=== PATIENT | male | born 1940 | race African-American/Black ===

== ENCOUNTER 2016-10-15 12:26 | Observation (INO) | payer OTHER ==
[~2016-10-15] VITALS: Ht 172.7 cm; Wt 85.0 kg
[~2016-10-15 12:26] MED LIST: AFRI0.059 EACH NARE; ALLO300T2 PO; CART240C4 PO; FURO1TAB93 PO; GABA100C4 PO; KLOR20TA6 PO; LISI20 PO; MAGN400T PO; NEXI40CA PO; ST JTAB PO; TRAM50TA PO; WARF7.5T4 PO
[2016-10-15 12:28] VITALS: BP 143/74; PULSE 60; RESP 16; TEMP 97.9; O2SAT 99
--- NOTE | 2016-10-15 13:07 | RADRPT ---
EXAM DATE/TIME: 10/15/2016 12:38 [place] COMPARISON: CHEST SINGLE AP, March 02, 2016, 11:03. INDICATIONS : Chest pain. MEDICAL HISTORY : None. SURGICAL HISTORY : Pacemaker. ENCOUNTER: Initial ACUITY: 3 days PAIN SCORE: 9/10 LOCATION: middle Chest. FINDINGS: A single view of the chest demonstrates the lungs to be symmetrically aerated without evidence of mas s, infiltrate or effusion. Stable dual lead cardiac device. Heart size is normal.. Osseous structure s are intact. CONCLUSION: No acute disease. Flavia Lewis MD on October 15, 2016 at 13:05 Board Certified Radiologist. This report was verified electronically.
--- NOTE | 2016-10-15 13:14 | PD ---
HPI Chief Complaint: Chest Pain Time Seen by Provider: 13:09 Travel History International Travel<30 days: No Contact w/Intl Traveler<30days: No Traveled to known affect area: No History of Present Illness HPI 76-year-old male that presents to the ED for evaluation of chest pain. Patient has had chest pain for the past 2-3 days. Per patient he thought he was maybe a cold that she had some cough and runny nose but the pain has not been better. Per patient is taking a couple of nitroglycerin with some relief but he feels that after the nitroglycerin his heart palpitating. Patient has had Caths and history of heart disease with a defibrillator and pacemaker by Dr. Horne. He denies any abdominal pain. No Nausea or vomiting. She says that the pain gets worse tonight and Symptoms and shortness of breath. Per patient he doesn't know if his defibrillator is firing he cannot really tell me what that feels like. Per patient he states to aspirin. He does take Coumadin. He denies any headache. No blurry vision or double vision. Shortness of breath worsens with lying. Denies any bowel movement or urinary issues. Denies any numbness, tingling, weakness. States that the pain gets to be 7 out of 10 and mostly on the left side of the chest. Pain is not reproducible. PFSH Past Medical History Hx Anticoagulant Therapy: Yes Arthritis: No Asthma: No Autoimmune Disease: No Blood Disorders: No Anxiety: No Depression: No Heart Rhythm Problems: Yes Cancer: No Cardiac Catheterization: Yes Cardiovascular Problems: Yes Chemotherapy: No Chest Pain: Yes Congestive Heart Failure: Yes COPD: Yes Cerebrovascular Accident: No Coronary Artery Disease: Yes Diabetes: No Diminished Hearing: No Endocrine: No Gastrointestinal Disorders: No GERD: Yes Glaucoma: No Genitourinary: No Headaches: No Hepatitis: No Hiatal Hernia: No Hypertension: Yes Immune Disorder: No Implanted Vascular Access Dvce: Yes Kidney Stones: No Musculoskeletal: Yes (r arm) Neurologic: Yes Psychiatric: No Reproductive: No Respiratory: Yes Integumentary: No Immunizations Current: Yes Migraines: No Myocardial Infarction: Yes Radiation Therapy: No Renal Failure: No Seizures: No Sickle Cell Disease: No Sleep Apnea: Yes Thyroid Disease: No Ulcer: No Tetanus Vaccination: Unknown Influenza Vaccination: Yes ?: Not Past Surgical History Abdominal Surgery: No AICD: Yes ([employer]) Appendectomy: No Arteriovenous Shunt: No Body Medical Devices: PACER/DEFIBRILATOR Cardiac Surgery: Yes (pacemaker/defrib) Cholecystectomy: No Coronary Artery Bypass Graft: No Ear Surgery: No Endocrine Surgery: No Eye Surgery: No Genitourinary Surgery: No Gynecologic Surgery: No Insulin Pump: No Joint Replacement: No Oral Surgery: No Pacemaker: Yes Thoracic Surgery: No Other Surgery: Yes (back,fribrillator, broken arm right) Family History Family Myocardial Infarction: Yes Social History Alcohol Use: No Tobacco Use: No Substance Use: No Allergies-Medications (Allergen,Severity, Reaction): Coded Allergies: Red Pepper (Verified Allergy, Intermediate, Itching, 05/26/15) Tomato (Verified Allergy, Intermediate, Itching, 05/26/15) Aspirin (Verified Adverse Reaction, Severe, UPSET STOMACH, 05/26/15) *MDRO Multi-Drug Resistant Organism (Unverified Adverse Reaction, Unknown , 05/26/15) Hx MRSA chest wound 02/2010. Reported Meds & Prescriptions Reported Meds & Active Scripts Active Warfarin Sodium 7.5 mg (Warfarin Sodium) 7.5 Mg Tab 7.5 Mg PO DAILY@1600 30 Days hold if inr greater than 3.0 Reported Nexium (Esomeprazole Magnesium) Esomeprazole Magnesium 40 mg Cap 40 Mg PO DAILY Afrin 12 Hour (Oxymetazoline Hcl) 0.05 % Spr 1 [place] EACH NARE DIRECTED PRN K-Dur (Potassium Chloride) 20 Meq Tabcr 20 Meq PO BID Aspirin Ec Low Dose (Aspirin) 81 Mg Tab 81 Mg PO DAILY Gabapentin 100 Mg Cap 100 Mg PO HS Tramadol Hcl (Tramadol HCl) 50 Mg Tab 50 Mg PO Q6HR PRN Cartia XT 240 mg (DILTIAZEM XT 240 mg (Cartia)) 240 Mg/24 Hr Cap 240 Mg PO DAILY Prinivil 20 mg (Lisinopril) 20 Mg Tab 20 Mg PO DAILY Mag-Ox 400 (Magnesium Oxide) 400 Mg Tab 400 Mg PO BID Allopurinol 300 Mg Tab 300 Mg PO DAILY Lasix (Furosemide) 40 Mg Tab 40 Mg PO DAILY Review of Systems Except as stated in HPI: all other systems reviewed are Neg Physical Exam Narrative GENERAL: SKIN: Warm and dry. HEAD: Atraumatic. Normocephalic. EYES: Pupils equal and round 4 mm reactive to light and accommodation. No scleral icterus. No injection or drainage. ENT: No nasal bleeding or discharge. Mucous membranes pink and moist. Tongue is midline. No Uvula deviation. NECK: Trachea midline. No JVD. CARDIOVASCULAR: Regular rate and rhythm. RESPIRATORY: No accessory muscle use. Clear to auscultation. Breath sounds equal bilaterally. GASTROINTESTINAL: Abdomen soft, non-tender, nondistended. Hepatic and splenic margins not palpable. MUSCULOSKELETAL: Extremities without clubbing, cyanosis, or edema. No obvious deformities. Full range of motion of the upper and lower extremities bilaterally. 2+ pulses bilaterally. NEUROLOGICAL: Awake and alert. No obvious cranial nerve deficits. Motor grossly within normal limits. Five out of 5 muscle strength in the arms and legs. Normal speech. PSYCHIATRIC: Appropriate mood and affect; insight and judgment normal. Data Data Last Documented VS Vital Signs Date Time Temp Pulse Resp B/P Pulse Ox O2 Delivery O2 Flow Rate FiO2 10/15/16 12:58 60 20 100 Room Air 10/15/16 12:28 97.9 143/74 Orders Electrocardiogram (10/15/16 12:33) Complete Blood Count With Diff (10/15/16 12:33) Basic Metabolic Panel (Bmp) (10/15/16 12:33) Ckmb (Isoenzyme) Profile (10/15/16 12:33) Troponin I (10/15/16 12:33) Chest, Single Ap (10/15/16 12:33) Prothrombin Time / Inr (Pt) (10/15/16 13:01) Act Partial Throm Time (Ptt) (10/15/16 13:01) Electrocardiogram (10/15/16 15:43) Ckmb (Isoenzyme) Profile (10/15/16 15:43) Troponin I (10/15/16 15:43) Famotidine Inj (Pepcid Inj) (10/15/16 15:45) Labs Laboratory Tests Test 10/15/16 10/15/16 12:40 13:32 White Blood Count 8.4 TH/MM3 Red Blood Count 4.89 MIL/MM3 Hemoglobin 13.7 GM/DL Hematocrit 41.8 % Mean Corpuscular Volume 85.5 FL Mean Corpuscular Hemoglobin 28.0 PG Mean Corpuscular Hemoglobin 32.8 % Concent Red Cell Distribution Width 15.3 % Platelet Count 236 TH/MM3 Mean Platelet Volume 8.7 FL Neutrophils (%) (Auto) 59.0 % Lymphocytes (%) (Auto) 29.8 % Monocytes (%) (Auto) 8.2 % Eosinophils (%) (Auto) 2.6 % Basophils (%) (Auto) 0.4 % Neutrophils # (Auto) 4.9 TH/MM3 Lymphocytes # (Auto) 2.5 TH/MM3 Monocytes # (Auto) 0.7 TH/MM3 Eosinophils # (Auto) 0.2 TH/MM3 Basophils # (Auto) 0.0 TH/MM3 CBC Comment DIFF FINAL Differential Comment Sodium Level 136 MEQ/L Potassium Level 4.3 MEQ/L Chloride Level 105 MEQ/L Carbon Dioxide Level 21.6 MEQ/L Anion Gap 9 MEQ/L Blood Urea Nitrogen 29 MG/DL Creatinine 1.70 MG/DL Estimat Glomerular Filtration 48 ML/MIN Rate Random Glucose 92 MG/DL Calcium Level 8.7 MG/DL Total Creatine Kinase 95 U/L Troponin I LESS THAN 0.02 NG/ML Prothrombin Time 15.8 SEC Prothromb Time International 1.4 RATIO Ratio Activated Partial 28.7 SEC Thromboplast Time MDM Medical Decision Making Medical Screen Exam Complete: Yes Emergency Medical Condition: Yes Medical Record Reviewed: Yes Interpretation(s) CBC & BMP Diagram 10/15/16 12:40 troponin and CKMB negative Last Impressions Chest X-Ray 10/15/16 1233 Signed Impressions: Service Date/Time: Saturday, October 15, 2016 12:38 - CONCLUSION: No acute disease. Flavia Lewis MD PT and PTT WNL Differential Diagnosis Chest pain versus a typical chest pain versus COPD versus CHF versus ACS Narrative Course 76-year-old male that presents to the ED for evaluation of chest pain. Patient was properly examined and was found to have signs and symptoms concerning for cardiac chest pain. My recommendation at this time is for labs and imaging. Patient is agreeable with this. [employer] was contacted for interrogation of the pacemaker and defibrillator. Labs and imaging showed no sign of acute disease. At 3 hours after her initial troponin no one has come yet to do the interrogating of the the past. I ordered a second troponin and CK-MB as well as the EKG as patient will likely be admitted to chest pain center as long as the pacemaker and defibrillator are within normal limits. This was discussed in my attending who agrees with plan. Patient does have risk factors including high blood pressure, high cholesterol and previous heart disease. Pace maker had no sign of acute disease or changes. Discussed with patient need to admit for cardiac work up. Agrees to it. patient admitted to chest pain center. Diagnosis Primary Impression: Chest pain Qualified Code: R07.89 - Other chest pain Abner Yee Oct 15, 2016 13:14
[2016-10-15 13:27] LABS: AUTOMATED NEUTROPHIL # 4.9 TH/MM3 (1.8-7.7); BASOPHIL % 0.4 % (0.0-2.0); EOSINOPHIL # 0.2 TH/MM3 (0-0.4); EOSINOPHIL % 2.6 % (0.0-4.0); HEMATOCRIT 41.8 % (39.0-51.0); HEMO FLAGS DIFF FINAL; LYMPH % 29.8 % (9.0-44.0); LYMPHOCYTE # 2.5 TH/MM3 (1.0-4.8); MEAN CELL VOLUME 85.5 FL (80.0-100.0); MEAN CORPUSCULAR HGB CONC 32.8 % (32.0-36.0); MONO % 8.2 % (0.0-8.0); PLATELET COUNT 236 TH/MM3 (150-450); RED BLOOD COUNT 4.89 MIL/MM3 (4.50-5.90); RED CELL DISTRIBUTION WIDTH 15.3 % (11.6-17.2); WHITE BLOOD COUNT 8.4 TH/MM3 (4.0-11.0)
[2016-10-15 13:54] LABS: ANION GAP 9 MEQ/L (5-15); BICARBONATE 21.6 MEQ/L (21.0-32.0); BLOOD UREA NITROGEN 29 MG/DL (7-18); CHLORIDE 105 MEQ/L (98-107); CREATINE KINASE 95 U/L (39-308); GLOMERULAR FILTRATION RATE 48 ML/MIN (>89); SODIUM (NA) 136 MEQ/L (136-145)
[2016-10-15 13:55] LABS: POTASSIUM 4.3 MEQ/L (3.5-5.1)
[2016-10-15 14:26] LABS: APTT (PATIENT) 28.7 SEC (24.3-30.1); PROTHROMBIN TIME - PATIENT 15.8 SEC (9.8-11.6)
[2016-10-15 14:27] LABS: INTERNATIONAL NORMALIZED RATIO 1.4 RATIO
[2016-10-15] MEDS ORDERED: FAMOTIDINE 20 MG/2 ML VIAL IV PUSH ONE (15:45)
[2016-10-15] MEDS ORDERED: SODIUM CHLORIDE 0.9% FLUSH 5 ML FLUSH IVF PRN (16:45)
[2016-10-15] MEDS ORDERED: ACETAMINOPHEN 500 MG CPLT PO PRN (16:45)
[2016-10-15 17:32] LABS: CREATINE KINASE 139 U/L (39-308)
[2016-10-15] MEDS ORDERED: NEXI40CA PO (17:43)
[2016-10-15] MEDS ORDERED: GABA100C4 PO (17:43)
[2016-10-15] MEDS ORDERED: WARF-23 PO ×2 (17:43)
[2016-10-15] MEDS ORDERED: TRAM50TA PO (17:43)
[2016-10-15] MEDS ORDERED: ALLO300T2 PO (17:43)
[2016-10-15] MEDS ORDERED: SIME1CAP17 PO (17:43)
[2016-10-15] MEDS ORDERED: TIZA4TAB PO (17:43)
[2016-10-15] MEDS ORDERED: STOO100C PO (17:43)
[2016-10-15] MEDS ORDERED: MAGN400T2 PO (17:43)
[2016-10-15] MEDS ORDERED: LISI-515 PO (17:43)
[2016-10-15] MEDS ORDERED: POTA-163 PO (17:43)
[2016-10-15] MEDS ORDERED: ASPI1TAB91 PO (17:43)
[2016-10-15] MEDS ORDERED: FURO1TAB60 PO (17:43)
[2016-10-15] MEDS ORDERED: CARV3.125 PO (17:43)
[2016-10-15] MEDS ORDERED: DILT-48 PO (17:43)
[2016-10-15 17:45] LABS: CKMB 1.3 NG/ML (0.5-3.6)
[2016-10-15 20:00] VITALS: BP 137/81; PULSE 60; RESP 20; O2SAT 97
[2016-10-15 20:55] VITALS: BP 160/81; PULSE 61; RESP 20; TEMP 97.6; O2SAT 99
[2016-10-15 20:57] LABS: CREATINE KINASE 118 U/L (39-308)
[2016-10-15] MEDS ORDERED: SODIUM CHLORIDE 0.9% FLUSH 5 ML FLUSH IVF SCH (21:00)
[2016-10-15 21:10] LABS: CKMB 1.2 NG/ML (0.5-3.6)
[2016-10-16 00:02] VITALS: BP 114/61; PULSE 60; RESP 20; TEMP 97.4; O2SAT 100
[2016-10-16 00:54] VITALS: PULSE 65
[2016-10-16 01:52] VITALS: O2SAT 96
[2016-10-16 04:03] VITALS: BP 126/77; PULSE 60; RESP 18; TEMP 98.3; O2SAT 99
[2016-10-16 05:21] VITALS: BP 148/73; PULSE 67; RESP 18; TEMP 97.9; O2SAT 97
--- NOTE | 2016-10-16 07:24 | HHI.DCPOC ---
Discharge Care Plan Diagnosis: (1) GERD (gastroesophageal reflux disease) (2) Chest pain, atypical Goals to Promote Your Health * To prevent worsening of your condition and complications * To maintain your health at the optimal level Directions to Meet Your Goals Take your medications as prescribed Follow your dietary instruction Follow activity as directed Keep your appointments as scheduled Take your immunizations and boosters as scheduled If your symptoms worsen call your PCP, if no PCP go to Urgent Care Center or Emergency Room Smoking is Dangerous to Your Health. Avoid second hand smoke Call the 24-hour hour crisis hotline for domestic abuse at Bruce Campbell Oct 16, 2016 07:24
[2016-10-16] MEDS ORDERED: FAMOTIDINE 20 MG TAB PO SCH (09:00)
--- NOTE | 2016-10-16 10:38 | MH ---
cc: VETO GARAY MD DATE OF ADMISSION: 10/15/2016 1942 CHIEF COMPLAINT Chest pain. HISTORY OF PRESENT ILLNESS This is a 76-year-old male who presents to the ED with history of nonischemic cardiomyopathy, follows with Dr. Horne. He states that after eating apple last evening he felt a lot of gas in his abdomen. The gas then started to bubble up into his chest. He found he was able to pass a lot of gas and was feeling better. Denies any other type of discomfort. Denies shortness breath. Denies diaphoresis. Denies sensation of heart beating rapidly or irregularly. He had no vomiting. He states he does have some problems with moving his bowel movements at times, he stated he had normal bowel movement yesterday. PAST MEDICAL HISTORY 1. Nonischemic cardiomyopathy. 2. Gastroesophageal reflux disease. 3. Hypertension. 4. He has a pacer/defibrillator. Denies diabetes. He is unaware of his lipid status but I do not see any statins on his medication list. FAMILY HISTORY Positive for CAD. SOCIAL HISTORY The patient does not smoke, drink alcohol or use illicit drugs. PAST SURGICAL HISTORY 1. He has a defibrillator/pacemaker. 2. He has had heart catheterizations by interventions. ALLERGIES RED PEPPER, TOMATO, ASPIRIN AND HISTORY OF MRSA. MEDICATIONS Medications include: 1. Lisinopril. 2. Magnesium. 3. Warfarin. 4. Gabapentin. 5. Simethicone. 6. Allopurinol. 7. Carvedilol. 8. Diltiazem. 9. Stool softener. 10. Tizanidine. 11. Lasix. 12. Aspirin, although he stated he is allergic it but he states he takes it regularly. 13. Tramadol. 14. Nexium. 15. Potassium. REVIEW OF SYSTEMS GENERAL: Denies fevers or chills. Denies recent illnesses. HEENT: Denies headache, earache, sore throat, difficulty swallowing. CARDIOVASCULAR: Describes the discomfort as mentioned above. Denies diaphoresis. Denies sensation of heart beating rapidly or irregularly. No syncope. RESPIRATORY: Denies shortness of breath or inspirational chest discomfort. Denies coughing, wheezing or hemoptysis. GI: Denies nausea, vomiting, diarrhea, abdominal pain, blood in stool. He does get some gassy bubble sensation in his abdomen that radiated up into his chest. MUSCULOSKELETAL: Denies joint pain or edema. Denies calf pain or edema. NEUROVASCULAR: Denies headache or dizziness. ENDOCRINE: Denies polyuria or polydipsia. HEMATOLOGIC: Denies easy bruising. SKIN: Denies rash or itching. PHYSICAL EXAMINATION VITAL SIGNS: In the emergency department initially include blood pressure 143/74, heart rate 60, respirations 16, pulse oximetry 99% on room air and he was afebrile. Most recent vital signs include blood pressure 140/73, heart rate 67, respirations 18, pulse oximetry 9_% on room air and he was afebrile. GENERAL: The patient is seen in the examination room in no apparent distress. He is pleasant. He speaks in clear and complete sentences. HEENT: Head is atraumatic, normocephalic. NECK: Neck is supple without lymphadenopathy. Trachea is midline. No JVD or carotid bruits. CARDIOVASCULAR: Regular rate and rhythm without murmur, gallop or rub. RESPIRATORY: Lungs are clear to auscultation bilaterally. No wheezing, rales or rhonchi. No use of accessory muscles. GI: Abdomen is nontender, nondistended, bowel sounds are normal. No guarding or rebound. No obvious pulsatile mass or bruit. No CVA tenderness. Strong femoral pulses bilaterally. MUSCULOSKELETAL: The patient is moving upper and lower extremities freely. No joint tenderness or edema. No calf tenderness or edema, no Homans' sign. Strong pulses in upper and lower extremities. NEUROVASCULAR: The patient is alert and oriented. Cranial II-XII grossly intact. No focal deficits and speech is clear. SKIN: No rashes and turgor is normal. LABORATORY DATA CBC is unremarkable. Coagulation studies have INR 1.4 which was subtherapeutic. Basic metabolic panel has a creatinine elevated at 1.70, BUN elevated at 29, GFR is 48. Serial cardiac enzymes are normal x3. IMAGING STUDIES Single view chest x-ray read by radiology as no acute disease, pacer/defibrillator in place. EKGs are paced. ASSESSMENT AND PLAN 1. Atypical chest pain: The patient's discomfort seems to be more GI related. The patient really has not been taking the Simethicone as instructed. He has been advised to use that with his meals. He states ___ he gets a little gassy. Also the patient's INR is subtherapeutic at 1.4 but the patient does not think he took it the last couple days. The patient has been advised to take his medication as instructed and follow up with his physician to regulate his Coumadin. 2. 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 Horne. 3. Gastroesophageal reflux disease: Continue current medication. 4. Hypertension: Continue current medication. 5. Chronic renal insufficiency: The patient to continue follow-up with his physician. The patient is stable at this time. He is agreeable to this plan. Dictated by: Bruce Campbell PA-C MD ISHAAN Tineo/TLL /9:33 AM /10:38 AM
--- NOTE | 2016-10-16 14:47 | EKG ---
Date Performed: 10/15/2016 Time Performed: 19:50:54 PTAGE: 76 years EKG: ELECTRONIC ATRIAL PACEMAKER MARKED LEFT AXIS DEVIATION POSSIBLE OLD ANTERIOR MYOCARDIAL INF ARCTION PREVIOUS TRACING : 10/15/2016 16.25 VENTRICULAR PACER NO LONGER PRESENT DOCTOR: Donny Velazquez Interpretating Date/Time 10/16/2016 14:45:14
--- NOTE | 2016-10-16 14:48 | EKG ---
Date Performed: 10/15/2016 Time Performed: 12:42:53 PTAGE: 76 years EKG: ELECTRONIC ATRIAL PACEMAKER LEFT ANTERIOR FASCICULAR BLOCK POSSIBLE LATERAL MYOCARDIAL INFA RCTION ABNORMAL ECG PREVIOUS TRACING : 03/02/2016 17.01 Since previous tracing, no significant change noted DOCTOR: Donny Velazquez Interpretating Date/Time 10/16/2016 14:47:54
--- NOTE | 2016-10-16 14:48 | EKG ---
Date Performed: 10/15/2016 Time Performed: 16:25:22 PTAGE: 76 years EKG: ELECTRONIC VENTRICULAR PACEMAKER ABNORMAL RHYTHM ECG PREVIOUS TRACING : 10/15/2016 12.42 DOCTOR: Donny Velazquez Interpretating Date/Time 10/16/2016 14:46:05
== END 2016-10-16 09:03 | disposition home or self-care (01) ==
LOC: NEPC 12:26 → NEDA 16:42 → NEPFCDU 20:54
PROVIDERS: ADMIT Internal Medicine Cardiovascular Disease; ATTEND Internal Medicine Cardiovascular Disease
DX: R07.89 Other chest pain (principal); I25.10 Atherosclerotic heart disease of native coronary artery without angina pectoris; I13.0 Hypertensive heart and chronic kidney disease with heart failure and stage 1 through stage 4 chronic kidney disease, or unspecified chronic kidney disease; N18.9 Chronic kidney disease, unspecified; J44.9 Chronic obstructive pulmonary disease, unspecified; I25.2 Old myocardial infarction; K21.9 Gastro-esophageal reflux disease without esophagitis; E78.00 Pure hypercholesterolemia, unspecified; G47.30 Sleep apnea, unspecified; Z79.01 Long term (current) use of anticoagulants; Z95.0 Presence of cardiac pacemaker
CPT/HCPCS: 71010; 80048; 82550; 82552; 84484; 85025; 85610; 85730; 93005; 96374; 99285; G0378

== ENCOUNTER 2017-11-19 03:38 | Observation (INO) | payer OTHER ==
[2017-11-19] VITALS (10 sets, daily range): BP systolic 117–187; BP diastolic 63–91; PULSE 60–77; RESP 16–18; TEMP 97.3–98.3; O2SAT 96–100
[~2017-11-19] VITALS: Ht 170.2 cm; Wt 109.0 kg
[~2017-11-19 03:38] MED LIST changes: -AFRI0.059 EACH NARE; +ASPI81TA16 PO; -CART240C4 PO; +CARV3.125 PO; +DILT-48 PO; +DOCU1CAP66 PO; +FURO1TAB60 PO; -FURO1TAB93 PO; -KLOR20TA6 PO; +LISI-515 PO; -LISI20 PO; -MAGN400T PO; +MAGN400T2 PO; +POTA-163 PO; +SIME1CAP17 PO; -ST JTAB PO; +TIZA4TAB PO; +WARF-23 PO; -WARF7.5T4 PO
[2017-11-19] MEDS ORDERED: SODIUM CHLORIDE 0.9% FLUSH 10 ML FLUSH IV FLUSH PRN ×2 (05:00→06:45)
[2017-11-19] MEDS ORDERED: ONDANSETRON HCL 4 MG/2 ML VIAL IVP ONE (05:00)
[2017-11-19] MEDS ORDERED: PANTOPRAZOLE SODIUM 40 MG VIAL IVP ONE (05:00)
[2017-11-19 05:18] LABS: AUTOMATED NEUTROPHIL # 4.3 TH/MM3 (1.8-7.7); BASOPHIL % 0.3 % (0.0-2.0); EOSINOPHIL # 0.2 TH/MM3 (0-0.4); HEMATOCRIT 41.9 % (39.0-51.0); HEMOGLOBIN 13.7 GM/DL (13.0-17.0); LYMPH % 29.3 % (9.0-44.0); LYMPHOCYTE # 2.2 TH/MM3 (1.0-4.8); MEAN CELL VOLUME 84.4 FL (80.0-100.0); MEAN CORPUSCULAR HEMOGLOBIN 27.6 PG (27.0-34.0); MEAN CORPUSCULAR HGB CONC 32.7 % (32.0-36.0); MEAN PLATELET VOLUME 8.4 FL (7.0-11.0); MONO % 11.1 % (0.0-8.0); MONOCYTE # 0.8 TH/MM3 (0-0.9); NEUT % 56.3 % (16.0-70.0); PLATELET COUNT 219 TH/MM3 (150-450); RED BLOOD COUNT 4.96 MIL/MM3 (4.50-5.90); WHITE BLOOD COUNT 7.6 TH/MM3 (4.0-11.0)
[2017-11-19 05:22] LABS: INTERNATIONAL NORMALIZED RATIO 3.4 RATIO; PROTHROMBIN TIME - PATIENT 33.8 SEC (9.8-11.6)
--- NOTE | 2017-11-19 05:28 | PD ---
HPI Chief Complaint: GI Complaint Time Seen by Provider: 04:12 Travel History International Travel<30 days: No Contact w/Intl Traveler<30days: No Traveled to known affect area: No History of Present Illness HPI Patient is a history of recent only noticing bright red blood per rectum over the past few hours. Initial onset was in the afternoon today. Patient denies any history of lightheadedness dizziness or chest pain. Patient denies any alleviating or aggravating factors. PATIENT IS ON COUMADIN AND PER PATIENT HE IS COMPLIANT WITH IT. allergies aspirin Past medical history significant for previous CT congestive heart failure coronary artery disease pacemaker defibrillator hypertension COPD GERD BPH PFSH Past Medical History Hx Anticoagulant Therapy: Yes Arthritis: No Asthma: No Autoimmune Disease: No Blood Disorders: No Anxiety: No Depression: No Heart Rhythm Problems: Yes Cancer: No Cardiac Catheterization: Yes Cardiovascular Problems: Yes Chemotherapy: No Chest Pain: Yes Congestive Heart Failure: Yes COPD: Yes Cerebrovascular Accident: No Coronary Artery Disease: Yes Diabetes: No Diminished Hearing: No Endocrine: No Gastrointestinal Disorders: No GERD: Yes Glaucoma: No Genitourinary: No Headaches: No Hepatitis: No Hiatal Hernia: No Hypertension: Yes Immune Disorder: No Implanted Vascular Access Dvce: Yes Kidney Stones: No Musculoskeletal: Yes (r arm) Neurologic: Yes Psychiatric: No Reproductive: No Respiratory: Yes Integumentary: No Immunizations Current: Yes Migraines: No Myocardial Infarction: Yes Radiation Therapy: No Renal Failure: No Seizures: No Sickle Cell Disease: No Sleep Apnea: Yes Thyroid Disease: No Ulcer: No Tetanus Vaccination: Unknown Influenza Vaccination: Yes Past Surgical History Abdominal Surgery: No AICD: Yes (medtronic) Appendectomy: No Arteriovenous Shunt: No Body Medical Devices: PACER/DEFIBRILATOR Cardiac Surgery: Yes (pacemaker/defrib) Cholecystectomy: No Coronary Artery Bypass Graft: No Ear Surgery: No Endocrine Surgery: No Eye Surgery: No Genitourinary Surgery: No Gynecologic Surgery: No Insulin Pump: No Joint Replacement: No Oral Surgery: No Pacemaker: Yes Thoracic Surgery: No Other Surgery: Yes (back,fribrillator, broken arm right) Family History Family Myocardial Infarction: Yes Social History Alcohol Use: No Tobacco Use: No Substance Use: No Allergies-Medications (Allergen,Severity, Reaction): Coded Allergies: pepper (Unverified Allergy, Intermediate, Itching, 11/19/17) tomato (Unverified Allergy, Intermediate, Itching, 11/19/17) aspirin (Unverified Adverse Reaction, Severe, UPSET STOMACH, 11/19/17) *MDRO Multi-Drug Resistant Organism (Unverified Adverse Reaction, Unknown , 11/19/17) Hx MRSA chest wound 02/2010. Reported Meds & Prescriptions Reported Meds & Active Scripts Active Reported Tizanidine (Tizanidine HCl) 4 Mg Tab 4 Mg PO Q8HR PRN Nexium (Esomeprazole DR) 40 Mg Capdr 40 Mg PO DAILY Stool Softener (Docusate Sodium) 100 Mg Cap 100 Mg PO DAILY PRN Warfarin 5 Mg Tab 5 Mg PO MOFR Take 1 tablet (5mg) on Thursday and Thursday Warfarin 5 Mg Tab 7.5 Mg PO SUTUWETHSA Take 1&1/2 tabs (7.5mg) on Thursday,Thursday,Thursday, and Thursday Aspirin Adult Low Strength (Aspirin) 81 Mg Tabdr 81 Mg PO DAILY Lisinopril 20 Mg Tab 20 Mg PO DAILY Diltiazem ER 24 HR 240 Mg Caper 240 Mg PO DAILY Tramadol (Tramadol HCl) 50 Mg Tab 50 Mg PO Q6H PRN Lasix (Furosemide) 40 Mg Tab 40 Mg PO DAILY Allopurinol 300 Mg Tab 300 Mg PO DAILY Simethicone 125 Mg Cap 125 Mg PO QID PRN Coreg (Carvedilol) 3.125 Mg Tab 3.125 Mg PO BID Magnesium Oxide 400 Mg Tab 400 Mg PO BID Potassium Chloride ER (Potassium Chloride) 20 Meq Tab 20 Meq PO BID Gabapentin 100 Mg Cap 100 Mg PO HS Review of Systems General / Constitutional: No: Fever Eyes: No: Visual changes HENT: No: Headaches Cardiovascular: No: Chest Pain or Discomfort Respiratory: No: Shortness of Breath Gastrointestinal: Positive: Hematochezia Genitourinary: No: Dysuria Musculoskeletal: No: Pain Skin: No Rash Neurologic: No: Weakness Psychiatric: No: Depression Endocrine: No: Polydipsia Hematologic/Lymphatic: No: Easy Bruising Physical Exam Narrative GENERAL: SKIN: Warm and dry. HEAD: Atraumatic. Normocephalic. EYES: Pupils equal and round. No scleral icterus. No injection or drainage. ENT: No nasal bleeding or discharge. Mucous membranes pink and moist. NECK: Trachea midline. No JVD. CARDIOVASCULAR: Regular rate and rhythm. RESPIRATORY: No accessory muscle use. Clear to auscultation. Breath sounds equal bilaterally. GASTROINTESTINAL: Abdomen soft, non-tender, nondistended. Trace guaiac positive MUSCULOSKELETAL: Extremities without clubbing, cyanosis, or edema. No obvious deformities. NEUROLOGICAL: Awake and alert. No obvious cranial nerve deficits. Motor grossly within normal limits. Five out of 5 muscle strength in the arms and legs. Normal speech. PSYCHIATRIC: Appropriate mood and affect; insight and judgment normal. Data Data Last Documented VS Vital Signs Date Time Temp Pulse Resp B/P (MAP) Pulse Ox O2 Delivery O2 Flow Rate FiO2 11/19/17 05:11 60 16 131/64 (86) 98 Room Air 11/19/17 03:40 97.7 Orders Orders Complete Blood Count With Diff (11/19/17 04:55) Comprehensive Metabolic Panel (11/19/17 04:55) Prothrombin Time / Inr (Pt) (11/19/17 04:55) Act Partial Throm Time (Ptt) (11/19/17 04:55) Ct Abd/Pel W/O Iv Contrast (11/19/17 04:55) Iv Access Insert/Monitor (11/19/17 04:55) Ecg Monitoring (11/19/17 04:55) Oximetry (11/19/17 04:55) NPO (11/19/17 04:55) Ondansetron Inj (Zofran Inj) (11/19/17 05:00) Pantoprazole Inj (Protonix Inj) (11/19/17 05:00) Sodium Chloride 0.9% Flush (Ns Flush) (11/19/17 05:00) Labs Laboratory Tests Test 11/19/17 04:50 White Blood Count 7.6 TH/MM3 Red Blood Count 4.96 MIL/MM3 Hemoglobin 13.7 GM/DL Hematocrit 41.9 % Mean Corpuscular Volume 84.4 FL Mean Corpuscular Hemoglobin 27.6 PG Mean Corpuscular Hemoglobin Concent 32.7 % Red Cell Distribution Width 16.0 % Platelet Count 219 TH/MM3 Mean Platelet Volume 8.4 FL Neutrophils (%) (Auto) 56.3 % Lymphocytes (%) (Auto) 29.3 % Monocytes (%) (Auto) 11.1 % Eosinophils (%) (Auto) 3.0 % Basophils (%) (Auto) 0.3 % Neutrophils # (Auto) 4.3 TH/MM3 Lymphocytes # (Auto) 2.2 TH/MM3 Monocytes # (Auto) 0.8 TH/MM3 Eosinophils # (Auto) 0.2 TH/MM3 Basophils # (Auto) 0.0 TH/MM3 CBC Comment DIFF FINAL Differential Comment Prothrombin Time 33.8 SEC Prothromb Time International Ratio 3.4 RATIO Activated Partial Thromboplast Time 42.2 SEC Total Protein 7.4 GM/DL Alkaline Phosphatase 88 U/L Total Bilirubin 0.5 MG/DL MDM Medical Decision Making Medical Screen Exam Complete: Yes Emergency Medical Condition: Yes Medical Record Reviewed: Yes Differential Diagnosis Diverticulitis versus hemorrhoid versus lower GI bleed Narrative Course Patient clinically did not have any abdominal tenderness or rebound or guarding or rigidity. He is rectal exam did not show any evidence of hemorrhoid or fissures, but did show a trace guaiac-positive card on Coumadin. CBC did not show any evidence of leukocytosis and anemia or thrombocytosis or thrombocytopenia. It will be prudent, to have patient admitted for observation based on patient's use of Coumadin and guaiac-positive card. Diagnosis Primary Impression: Lower GI bleed hemodynamically stable Admitting Information Admitting Physician Requests: Observation Yuan Boone MD Nov 19, 2017 05:28
[2017-11-19 05:40] LABS: ALKALINE PHOSPHATASE 88 U/L (45-117); TOTAL BILIRUBIN ADULT 0.5 MG/DL (0.2-1.0); TOTAL PROTEIN 7.4 GM/DL (6.4-8.2)
--- NOTE | 2017-11-19 05:40 | RADRPT ---
EXAM DATE/TIME: 11/19/2017 05:27 [place] COMPARISON: No previous studies available for comparison. INDICATIONS : Patient complains of left side abdominal pain. ORAL CONTRAST: No oral contrast ingested. RADIATION DOSE: 20.89 CTDIvol (mGy) MEDICAL HISTORY : Cardiovascular disease. Hypertension. Chronic obstructive pulmonary disease. SURGICAL HISTORY : pacer/defib ENCOUNTER: Initial ACUITY: 1 day PAIN SCALE: 5/10 LOCATION: Left abdomen TECHNIQUE: Volumetric scanning of the abdomen and pelvis was performed. Using automated exposure control and ad justment of the mA and/or kV according to patient size, radiation dose was kept as low as reasonably achievable to obtain optimal diagnostic quality images. DICOM format image data is available electro nically for review and comparison. FINDINGS: Right adrenal adenoma measuring 2.9 cm. Liver, gallbladder, spleen, pancreas, left adrenal, right kid ebenezer unremarkable. There is a circumscribed cyst at the lower pole of the left kidney measuring 2.8 cm . Scattered atherosclerotic calcifications of the aorta and iliac vessels. The prostate, urinary blad joanie are unremarkable. Diverticulosis of the sigmoid and descending colon without diverticulitis. The appendix is normal. Small fat containing umbilical hernia. No obstruction, free fluid, or free air. S mall fat containing diaphragmatic hernia the right posterior costophrenic angle. Degenerative changes of the spine are seen. CONCLUSION: 1. Left renal cyst. 2. Diverticulosis without diverticulitis. 3. Atherosclerosis. 4. Right adrenal adenoma. Shyam Garcia MD on November 19, 2017 at 5:36 Board Certified Radiologist. This report was verified electronically.
[2017-11-19] MEDS ORDERED: NALOXONE HCL 0.4 MG/ML AMP IV PUSH PRN (06:45)
[2017-11-19] MEDS ORDERED: PHYTONADIONE 10 MG/ML VIAL SQ ONE (06:45)
[2017-11-19 09:00] LABS: ALBUMIN 2.8 GM/DL (3.4-5.0); AST (GOT) 17 U/L (15-37); BICARBONATE 25.2 MEQ/L (21.0-32.0); BLOOD UREA NITROGEN 16 MG/DL (7-18); CALCIUM 8.4 MG/DL (8.5-10.1); CHLORIDE 104 MEQ/L (98-107); CREATININE 1.06 MG/DL (0.60-1.30); GLOMERULAR FILTRATION RATE 83 ML/MIN (>89); GLUCOSE,RANDOM 74 MG/DL (74-106); SODIUM (NA) 137 MEQ/L (136-145)
[2017-11-19] MEDS: SODIUM CHLORIDE 0.9% FLUSH 10 ML FLUSH IV FLUSH SCH ×2 (09:00→21:00)
[2017-11-19 09:01] LABS: ALT (GPT) 16 U/L (12-78)
--- NOTE | 2017-11-19 09:31 | PD.CONS ---
HPI History of Present Illness This is a 77 year old male with hx SC, CHF, CAD, pacemaker/defibrillator who presented with BRBPR onset yesterday. He says he took too much robitussin for a cold, fell asleep and when he woke up he noticed the BRBPR. He cites hx hemorrhoidal bleed in the past. Denies abd pain but is tender on exam. Denies n/v, weight loss, black tarry stool. Takes coumadin. had colonoscopy 3 y ago in [place] and was normal per pt. Had EGD 2-3 years ago for a foreign body removal and denies any abnormal findings other than a fish bone. His brother had colon ca. (Laverne Amaya) PFSH Past Medical History SC CHF CAD AICD COPD Past Surgical History AICD placement orthopedic surgery (Laverne Amaya) Coded Allergies: pepper (Unverified Allergy, Intermediate, Itching, 11/19/17) tomato (Unverified Allergy, Intermediate, Itching, 11/19/17) aspirin (Unverified Adverse Reaction, Severe, UPSET STOMACH, 11/19/17) *MDRO Multi-Drug Resistant Organism (Unverified Adverse Reaction, Unknown , 11/19/17) Hx MRSA chest wound 02/2010. Family History brother with colon ca Social History denies any toxic habits (Laverne Amaya) Review of Systems Constitutional: DENIES: Fever, Weight loss Endocrine: DENIES: Polydipsia Eyes: DENIES: Blurred vision Ears, nose, mouth, throat: DENIES: Hearing loss Respiratory: DENIES: Cough Cardiovascular: DENIES: Chest pain Gastrointestinal: COMPLAINS OF: Bloody stools, DENIES: Abdominal pain, Black stools, Constipation, Diarrhea, Nausea, Vomiting Genitourinary: DENIES: Hematuria Musculoskeletal: DENIES: Joint Swelling Integumentary: DENIES: Pruritus Hematologic/lymphatic: DENIES: Bruising Neurologic: DENIES: Abnormal gait Psychiatric: DENIES: Confusion (Laverne Amaya) GI Exam Vitals I&O Vital Signs Date Time Temp Pulse Resp B/P (MAP) Pulse Ox O2 Delivery O2 Flow Rate FiO2 11/19/17 07:27 66 17 143/70 (94) 96 Room Air 11/19/17 05:11 60 16 131/64 (86) 98 Room Air 11/19/17 05:11 98 Room Air 11/19/17 03:40 97.7 60 18 187/91 (123) 100 Room Air Imaging Last Impressions Abdomen/Pelvis CT 11/19/17 9214 Signed Impressions: Service Date/Time: November 05:27 - CONCLUSION: 1. Left renal cyst. 2. Diverticulosis without diverticulitis. 3. Atherosclerosis. 4. Right adrenal adenoma. Shyam Garcia MD Laboratory Test 11/19/17 04:50 11/19/17 08:20 White Blood Count 7.6 TH/MM3 Red Blood Count 4.96 MIL/MM3 Hemoglobin 13.7 GM/DL Hematocrit 41.9 % Mean Corpuscular Volume 84.4 FL Mean Corpuscular Hemoglobin 27.6 PG Mean Corpuscular Hemoglobin Concent 32.7 % Red Cell Distribution Width 16.0 % Platelet Count 219 TH/MM3 Mean Platelet Volume 8.4 FL Neutrophils (%) (Auto) 56.3 % Lymphocytes (%) (Auto) 29.3 % Monocytes (%) (Auto) 11.1 % Eosinophils (%) (Auto) 3.0 % Basophils (%) (Auto) 0.3 % Neutrophils # (Auto) 4.3 TH/MM3 Lymphocytes # (Auto) 2.2 TH/MM3 Monocytes # (Auto) 0.8 TH/MM3 Eosinophils # (Auto) 0.2 TH/MM3 Basophils # (Auto) 0.0 TH/MM3 CBC Comment DIFF FINAL Differential Comment Prothrombin Time 33.8 SEC Prothromb Time International Ratio 3.4 RATIO Activated Partial Thromboplast Time 42.2 SEC Blood Urea Nitrogen 16 MG/DL Creatinine 1.06 MG/DL Random Glucose 74 MG/DL Total Protein 7.4 GM/DL Albumin 2.8 GM/DL Calcium Level 8.4 MG/DL Alkaline Phosphatase 88 U/L Aspartate Amino Transf (AST/SGOT) 17 U/L Alanine Aminotransferase (ALT/SGPT) 16 U/L Total Bilirubin 0.5 MG/DL Sodium Level 137 MEQ/L Potassium Level 4.2 MEQ/L Chloride Level 104 MEQ/L Carbon Dioxide Level 25.2 MEQ/L Anion Gap 8 MEQ/L Estimat Glomerular Filtration Rate 83 ML/MIN Physical Examination HEENT: PERRL; normocephalic; atraumatic; no jaundice. CHEST: CTA CARDIAC: RRR ABDOMEN: Soft,protuberant, nontender; no hepatosplenomegaly; bowel sounds are present in all four quadrants. EXTREMITIES: No clubbing, cyanosis, mild BLE edema SKIN: Normal; no rash; no jaundice. SUPERVISORY IT SPECIALIST: No focal deficits; alert and oriented times three. (Laverne Amaya) Assessment and Plan Plan ASSESSMENT - BRBPR - LGIB could be hemorrhoids vs diverticular. onset 1 day ago. HH currently WNL. on coumadin with INR 3.4. PLAN - colonoscopy in am - hold coumadin - FFP tonight - obtain consent - clear liquids today - NPO after midnight - Mg citrate prep - rck INR in am - further recs to follow pt seen by myself and DR Starr and this note is written on his behalf (Laverne Amaya) Physician Comments Patient seen and examined Agree with above Continue with current supportive care Monitor labs Plan for colonoscopy tomorrow we will also correct the coagulopathy (Vaughn Starr MD) Laverne Amaya Nov 19, 2017 09:30 Vaughn Starr MD Nov 19, 2017 19:38
[2017-11-19 10:53] LABS: HEMATOCRIT 41.2 % (39.0-51.0); HEMOGLOBIN 13.4 GM/DL (13.0-17.0)
[2017-11-19] MEDS ORDERED: MAGNESIUM CITRATE SOLN 300 ML BTL PO ONE ×2 (16:30→18:30)
[2017-11-19 17:08] LABS: HEMATOCRIT 40.8 % (39.0-51.0); HEMOGLOBIN 13.4 GM/DL (13.0-17.0)
--- NOTE | 2017-11-19 17:29 | HHI.HP ---
HPI Service [facility] Primary Care Physician Chon Hall MD Admission Diagnosis LOWER GI BLEED, HEMODYNAMICALLY STABLE, ON COUMADIN Diagnoses: Travel History International Travel<30 Days: No Contact w/Intl Traveler <30 Da: No Traveled to Known Affected Are: No History of Present Illness 77-year-old male with history of CAD, CHF, who presents with onset of bright red blood per rectum starting last night, continuing with bouts of bright red per rectum this morning. Patient denies any abdominal pain. He says he has had a cold recently, has been taking a lot of Robitussin cough medicine, however feels like his cold is better now. Denies any difficulty breathing. Denies any chest pain or shortness of breath currently. Review of Systems Performed and negative except for HPI and past medical history. Past Family Social History Past Medical History CAD CHF Nonischemic cardiomyopathy status post AICD COPD Atrial fibrillation. Past Surgical History AICD placement Orthopedic surgery Cardiac catheterizations with intervention Reported Medications Reported Meds & Active Scripts Active Reported Tizanidine (Tizanidine HCl) 4 Mg Tab 4 Mg PO Q8HR PRN Nexium (Esomeprazole DR) 40 Mg Capdr 40 Mg PO DAILY Stool Softener (Docusate Sodium) 100 Mg Cap 100 Mg PO DAILY PRN Warfarin 5 Mg Tab 5 Mg PO MOFR Take 1 tablet (5mg) on Thursday and Thursday Warfarin 5 Mg Tab 7.5 Mg PO SUTUWETHSA Take 1&1/2 tabs (7.5mg) on Thursday,Thursday,Thursday, and Thursday Aspirin Adult Low Strength (Aspirin) 81 Mg Tabdr 81 Mg PO DAILY Lisinopril 20 Mg Tab 20 Mg PO DAILY Diltiazem ER 24 HR 240 Mg Caper 240 Mg PO DAILY Tramadol (Tramadol HCl) 50 Mg Tab 50 Mg PO Q6H PRN Lasix (Furosemide) 40 Mg Tab 40 Mg PO DAILY Allopurinol 300 Mg Tab 300 Mg PO DAILY Simethicone 125 Mg Cap 125 Mg PO QID PRN Coreg (Carvedilol) 3.125 Mg Tab 3.125 Mg PO BID Magnesium Oxide 400 Mg Tab 400 Mg PO BID Potassium Chloride ER (Potassium Chloride) 20 Meq Tab 20 Meq PO BID Gabapentin 100 Mg Cap 100 Mg PO HS Allergies: Coded Allergies: pepper (Unverified Allergy, Intermediate, Itching, 11/19/17) tomato (Unverified Allergy, Intermediate, Itching, 11/19/17) aspirin (Unverified Adverse Reaction, Severe, UPSET STOMACH, 11/19/17) *MDRO Multi-Drug Resistant Organism (Unverified Adverse Reaction, Unknown , 11/19/17) Hx MRSA chest wound 02/2010. Family History brother with colon ca. Also family history of CAD. Social History Non-smoker. Nondrinker. Denies illicit drugs. Lives by himself. Physical Exam Vital Signs Vital Signs Date Time Temp Pulse Resp B/P (MAP) Pulse Ox O2 Delivery O2 Flow Rate FiO2 11/19/17 15:47 97.8 60 17 147/76 (99) 98 11/19/17 14:40 75 16 132/69 (90) 97 11/19/17 12:04 68 17 117/67 (84) 97 Room Air 11/19/17 07:27 66 17 143/70 (94) 96 Room Air 11/19/17 05:11 60 16 131/64 (86) 98 Room Air 11/19/17 05:11 98 Room Air 11/19/17 03:40 97.7 60 18 187/91 (123) 100 Room Air Physical Exam GENERAL: This is a well-nourished, well-developed patient, in no apparent distress. Alert and oriented 3. SKIN: No rashes, ecchymoses or lesions. Cool and dry. HEAD: Atraumatic. Normocephalic. No temporal or scalp tenderness. EYES: Pupils equal round and reactive. Extraocular motions intact. No scleral icterus. No injection or drainage. ENT: Nose without bleeding, purulent drainage or septal hematoma. Throat without erythema, tonsillar hypertrophy or exudate. Uvula midline. Airway patent. NECK: Trachea midline. No JVD or lymphadenopathy. Supple, nontender, no meningeal signs. CARDIOVASCULAR: Regular rate and rhythm without murmurs, gallops, or rubs. RESPIRATORY: Clear to auscultation. Breath sounds equal bilaterally. No wheezes , rales, or rhonchi. GASTROINTESTINAL: Abdomen soft, non-tender, nondistended. No hepato-splenomegaly , or palpable masses. No guarding. MUSCULOSKELETAL: Extremities without clubbing, cyanosis.No joint tenderness, effusion. No calf tenderness. Trace peripheral edema. Negative Homans sign bilaterally. NEUROLOGICAL: Awake and alert. Cranial nerves II through XII intact. Motor and sensory grossly within normal limits. Five out of 5 muscle strength in all muscle groups. Normal speech. Laboratory Laboratory Tests Test 11/19/17 04:50 11/19/17 08:20 11/19/17 10:13 11/19/17 16:40 White Blood Count 7.6 Red Blood Count 4.96 Hemoglobin 13.7 13.4 13.4 Hematocrit 41.9 41.2 40.8 Mean Corpuscular Volume 84.4 Mean Corpuscular Hemoglobin 27.6 Mean Corpuscular Hemoglobin Concent 32.7 Red Cell Distribution Width 16.0 Platelet Count 219 Mean Platelet Volume 8.4 Neutrophils (%) (Auto) 56.3 Lymphocytes (%) (Auto) 29.3 Monocytes (%) (Auto) 11.1 Eosinophils (%) (Auto) 3.0 Basophils (%) (Auto) 0.3 Neutrophils # (Auto) 4.3 Lymphocytes # (Auto) 2.2 Monocytes # (Auto) 0.8 Eosinophils # (Auto) 0.2 Basophils # (Auto) 0.0 CBC Comment DIFF FINAL Differential Comment Prothrombin Time 33.8 Prothromb Time International Ratio 3.4 Activated Partial Thromboplast Time 42.2 Blood Urea Nitrogen 16 Creatinine 1.06 Random Glucose 74 Total Protein 7.4 Albumin 2.8 Calcium Level 8.4 Alkaline Phosphatase 88 Aspartate Amino Transf (AST/SGOT) 17 Alanine Aminotransferase (ALT/SGPT) 16 Total Bilirubin 0.5 Sodium Level 137 Potassium Level 4.2 Chloride Level 104 Carbon Dioxide Level 25.2 Anion Gap 8 Estimat Glomerular Filtration Rate 83 Result Diagram: 11/19/17 1640 11/19/17 0820 Caprini VTE Risk Assessment Caprini VTE Risk Assessment: Mod/High Risk (score >= 2) VTE Pharm Contraindication: Active bleeding Caprini Risk Assessment Model Point Value = 1 Point Value = 2 Point Value = 3 Point Value = 5 Age 41-60 Minor surgery BMI > 25 kg/m2 Swollen legs Varicose veins or History of unexplained or recurrent spontaneous Oral contraceptives or hormone replacement Sepsis (< 1 month) Serious lung disease, including pneumonia (< 1 month) Abnormal pulmonary function Acute myocardial infarction Congestive heart failure (< 1 month) History of inflammatory bowel disease Medical patient at bed rest Age 61-74 Arthroscopic surgery Major open surgery (> 45 min) Laparoscopic surgery (> 45 min) Malignancy Confined to bed (> 72 hours) Immobilizing plaster cast Central venous access Age >= 75 History of VTE Family history of VTE Factor V Leiden Prothrombin 12586B Lupus anticoagulant Anticardiolipin antibodies Elevated serum homocysteine Heparin-induced thrombocytopenia Other congenital or acquired thrombophilia Stroke (< 1 month) Elective arthroplasty Hip, pelvis, or leg fracture Acute spinal cord injury (< 1 month) Prophylaxis Regimen Total Risk Factor Score Risk Level Prophylaxis Regimen 0-1 Low Early ambulation 2 Moderate Order ONE of the following: *Sequential Compression Device (SCD) *Heparin 5000 units SQ BID 3-4 Higher Order ONE of the following medications: *Heparin 5000 units SQ TID *Enoxaparin/Lovenox 40 mg SQ daily (WT < 150 kg, CrCl > 30 mL/min) *Enoxaparin/Lovenox 30 mg SQ daily (WT < 150 kg, CrCl > 10-29 mL/min) *Enoxaparin/Lovenox 30 mg SQ BID (WT < 150 kg, CrCl > 30 mL/min) AND/OR *Sequential Compression Device (SCD) 5 or more Highest Order ONE of the following medications: *Heparin 5000 units SQ TID (Preferred with Epidurals) *Enoxaparin/Lovenox 40 mg SQ daily (WT < 150 kg, CrCl > 30 mL/min) *Enoxaparin/Lovenox 30 mg SQ daily (WT < 150 kg, CrCl > 10-29 mL/min) *Enoxaparin/Lovenox 30 mg SQ BID (WT < 150 kg, CrCl > 30 mL/min) AND *Sequential Compression Device (SCD) Assessment and Plan Assessment and Plan //Bright blood per rectum Hemoglobin within normal limits. With supratherapeutic INR = Diverticulosis on CT abdomen. Hold warfarin. Continue to monitor hemoglobin. -GI consulted. PPI as per GI. EGD and colonoscopy tomorrow. //Supratherapeutic INR. 3.4 on admission. = Status post subcu vitamin K in the ER. Continue to monitor. Hold warfarin. //Incidental finding of right adrenal adenoma. Nonspecific. Follow-up primary care. //Atrial fibrillation. Chronic. //Cardiomyopathy //CAD with history of intervention. = Holding warfarin for now Continue beta-patrizia, diltiazem, aspirin, lisinopril. =-Monitor fluid status closely. //DVT prophylaxis. Supratherapeutic INR. Hold off on warfarin for now. Discussed Condition With Patient, nurse. Everton Styles MD Nov 19, 2017 17:29
[2017-11-19] MEDS ORDERED: PANTOPRAZOLE SODIUM 40 MG VIAL IV PUSH SCH (21:00)
[2017-11-19] MEDS: CARVEDILOL 3.125 MG TAB PO SCH (21:55)
[2017-11-20] VITALS (13 sets, daily range): BP systolic 117–161; BP diastolic 60–81; PULSE 59–70; RESP 16–20; TEMP 97.6–98.6; O2SAT 97–100
[2017-11-20] MEDS: MORPHINE SULFATE 2 MG/ML INJ IV PUSH PRN (04:14)
[2017-11-20] MEDS ORDERED: PHYTONADIONE 10 MG/ML VIAL SQ SCH (09:00)
[2017-11-20] MEDS: SODIUM CHLORIDE 0.9% FLUSH 10 ML FLUSH IV FLUSH SCH ×2 (09:00→21:24)
[2017-11-20 09:08] LABS: AUTOMATED NEUTROPHIL # 3.1 TH/MM3 (1.8-7.7); BASOPHIL % 0.3 % (0.0-2.0); EOSINOPHIL # 0.2 TH/MM3 (0-0.4); EOSINOPHIL % 3.5 % (0.0-4.0); HEMATOCRIT 39.7 % (39.0-51.0); LYMPH % 32.2 % (9.0-44.0); LYMPHOCYTE # 1.9 TH/MM3 (1.0-4.8); MEAN CELL VOLUME 85.5 FL (80.0-100.0); MEAN CORPUSCULAR HGB CONC 32.7 % (32.0-36.0); MEAN PLATELET VOLUME 8.2 FL (7.0-11.0); MONO % 12.1 % (0.0-8.0); MONOCYTE # 0.7 TH/MM3 (0-0.9); NEUT % 51.9 % (16.0-70.0); PLATELET COUNT 189 TH/MM3 (150-450); RED BLOOD COUNT 4.64 MIL/MM3 (4.50-5.90); RED CELL DISTRIBUTION WIDTH 16.1 % (11.6-17.2); WHITE BLOOD COUNT 5.9 TH/MM3 (4.0-11.0)
[2017-11-20 09:09] LABS: INTERNATIONAL NORMALIZED RATIO 1.5 RATIO; PROTHROMBIN TIME - PATIENT 15.6 SEC (9.8-11.6)
[2017-11-20 09:24] LABS: BICARBONATE 25.4 MEQ/L (21.0-32.0); CALCIUM 8.6 MG/DL (8.5-10.1); CREATININE 0.99 MG/DL (0.60-1.30)
[2017-11-20] MEDS ORDERED: SODIUM CHLORID 0.9% 500 ML INJ 500 ML IV ONE (10:34)
--- NOTE | 2017-11-20 11:47 | PD.PROCEDR ---
GI Procedure PROCEDURE PERFORMED Colonoscopy With snare polypectomy INDICATION FOR PROCEDURE Rectal bleeding PROCEDURE: The procedure, risks and benefits were discussed with Mr. Sorensen and informed consent was obtained. Anesthesia sedated him with Diprivan. He was placed in the left lateral decubitus position. Colonoscopy: The Pentax videoscope was introduced through the rectum and advanced to cecum where the ileocecal valve and appendiceal orifice were identified. Retroflexion was performed in the rectum. Colonic prep was good FINDINGS: Colonic withdrawal time greater than 6 minutes as the scope was slowly withdrawn colonic mucosa was carefully inspected the patient was noted to have 5 colon polyps 4 in the ascending colon and one in the proximal transverse colon there were all medium-sized sessile benign-looking all were excised for further evaluation and the excision was complete the patient was also noted to have moderate diverticulosis of the sigmoid region retroflexion in the rectum did reveal moderate size internal hemorrhoids colonic examination otherwise unremarkable ESTIMATED BLOOD LOSS: Minimal SPECIMENS REMOVED: Colonic Biopsies COMPLICATIONS: None IMPRESSION: Colon polyps Diverticulosis with probably diverticular bleeding Moderate size internal hemorrhoids PLAN: Await biopsies High-fiber diet Monitor labs Advanced diet as tolerated Resume anticoagulation in 3 days Colonoscopy in 3 years Vaughn Starr MD Nov 20, 2017 11:47
[2017-11-20] MEDS ORDERED: KETAMINE HCL 500 MG/5 ML VIAL ONE (11:50)
[2017-11-20] MEDS ORDERED: ePHEDrine/NS 25 MG/5 ML SYRINGE IV ONE (12:00)
[2017-11-20] MEDS ORDERED: PROPOFOL 200 MG/20 ML AMP IV ONE (12:00)
[2017-11-20] MEDS ORDERED: LIDOCAINE HCL 1% PF 5 ML SYRINGE OTHER ONE (12:00)
[2017-11-20] MEDS: CARVEDILOL 3.125 MG TAB PO SCH ×2 (12:01→21:21)
[2017-11-20] MEDS: PANTOPRAZOLE SOD 40 MG DELAYED RELEASE TAB PO SCH (12:01)
[2017-11-20] MEDS: LISINOPRIL 20 MG TAB PO SCH (12:02)
[2017-11-20] MEDS: ALLOPURINOL 300 MG TAB PO SCH (12:02)
[2017-11-20] MEDS: ASPIRIN EC 81 MG TABEC PO SCH (12:02)
[2017-11-20] MEDS: DILTIAZEM-CD 240 MG CAP ER PO SCH (12:06)
--- NOTE | 2017-11-20 15:25 | HHI.PR ---
Subjective Remarks Patient states that he is hungry and wants to eat again. Per RN patient already ate. Denies any bleeding. Denies any abdominal pain. States at some point felt some palpitations however those have resolved. Denies any chest pain , nausea or vomiting. Objective Vitals Vital Signs Date Time Temp Pulse Resp B/P (MAP) Pulse Ox O2 Delivery O2 Flow Rate FiO2 11/20/17 14:04 98.2 66 19 118/60 99 11/20/17 12:23 97.7 70 17 155/79 (104) 97 11/20/17 11:17 97.9 62 20 143/71 (95) 99 11/20/17 08:00 98.1 60 16 134/78 (96) 98 11/20/17 07:55 98.0 61 18 131/74 97 11/20/17 04:50 98.6 69 17 136/75 (95) 97 11/20/17 04:16 98.0 66 18 136/79 97 11/20/17 00:40 98.0 64 18 151/80 (103) 99 11/19/17 21:48 98.3 71 18 178/84 99 11/19/17 21:27 97.3 77 18 134/84 98 11/19/17 21:04 98.2 62 17 122/63 99 11/19/17 20:40 98.2 62 17 122/63 (82) 99 11/19/17 15:47 97.8 60 17 147/76 (99) 98 I/O 11/19/17 11/19/17 11/19/17 11/20/17 11/20/17 11/20/17 07:00 15:00 23:00 07:00 15:00 23:00 Intake Total 266 ml 1003 ml Balance 266 ml 1003 ml Intake FFP 266 ml 633 ml Blood Product IV Normal Saline Flush 220 ml Other 150 ml # Voids 5 # Bowel Movements 4 Result Diagram: 11/20/1770611/20/17 0707 Imaging Last Impressions Abdomen/Pelvis CT 11/19/17 0455 Signed Impressions: Service Date/Time: November 05:27 - CONCLUSION: 1. Left renal cyst. 2. Diverticulosis without diverticulitis. 3. Atherosclerosis. 4. Right adrenal adenoma. Shyam Garcia MD Objective Remarks GENERAL: Pleasant, -Niuean male, laying in bed. EYES: Extraocular motions intact. ENT: Edentulous, airway patent. NECK: Trachea midline. CARDIOVASCULAR: Regular rate and rhythm without murmurs RESPIRATORY: Clear to auscultation. Breath sounds equal bilaterally. No wheezes GASTROINTESTINAL: Abdomen soft, non-tender, nondistended. No guarding. MUSCULOSKELETAL: Moves all extremities with no difficulty. NEUROLOGICAL: Awake and alert. Normal speech. A/P Assessment and Plan //Bright blood per rectum Hemoglobin 13.0 With supratherapeutic INR at 3.4 now down to 1.5 s/p 3 units of ffp. Currently receiving 1 more = Diverticulosis on CT abdomen. Hold warfarin. Continue to monitor hemoglobin. -GI following. Status post EGD and colonoscopy which showed diverticulosis, polyps, internal hemorrhoids. PPI as per GI. Per GI, no anticoagulation for 3 days. //Supratherapeutic INR. 3.4 on admission. Status post subcu vitamin K in the ER. And FFP transfusio //Incidental finding of right adrenal adenoma. Nonspecific. Follow-up primary care. //Atrial fibrillation. Chronic. //Cardiomyopathy //CAD with history of intervention. = Holding warfarin for now Continue beta-patrizia, diltiazem, aspirin, lisinopril. =-Monitor fluid status closely. //DVT prophylaxis. holding chemical anticoagulation for 3 days per GI recommendations Discharge Planning Awaiting final recommendations from Sindi Mari MD Nov 20, 2017 15:25
[2017-11-20] MEDS ORDERED: RESP: ALBUTEROL 2.5 MG/IPRATROPIUM 0.5 MG NEB (SCH) NEB ONE (20:00)
[2017-11-20] MEDS ORDERED: RESP: ALBUTEROL 2.5 MG/IPRATROPIUM 0.5 MG NEB (PRN) NEB (20:00)
[2017-11-21] VITALS: BP 124/71; PULSE 74; RESP 18; TEMP 97.5; O2SAT 96
[2017-11-21] MEDS: MORPHINE SULFATE 2 MG/ML INJ IV PUSH PRN ×2 (01:45→08:06)
[2017-11-21 04:00] VITALS: BP 149/75; PULSE 60; RESP 18; TEMP 98.9; O2SAT 98
[2017-11-21] MEDS: ALLOPURINOL 300 MG TAB PO SCH (08:09)
[2017-11-21] MEDS: CARVEDILOL 3.125 MG TAB PO SCH (08:09)
[2017-11-21] MEDS: LISINOPRIL 20 MG TAB PO SCH (08:09)
[2017-11-21] MEDS: PANTOPRAZOLE SOD 40 MG DELAYED RELEASE TAB PO SCH (08:09)
[2017-11-21] MEDS: DILTIAZEM-CD 240 MG CAP ER PO SCH (08:09)
[2017-11-21] MEDS: ASPIRIN EC 81 MG TABEC PO SCH (08:09)
[2017-11-21] MEDS: SODIUM CHLORIDE 0.9% FLUSH 10 ML FLUSH IV FLUSH SCH (08:10)
[2017-11-21 08:48] VITALS: BP 153/66; PULSE 61; RESP 20; TEMP 98.2; O2SAT 99
[2017-11-21 08:54] LABS: HEMATOCRIT 38.8 % (39.0-51.0); HEMOGLOBIN 13.3 GM/DL (13.0-17.0); MEAN CELL VOLUME 83.8 FL (80.0-100.0); MEAN CORPUSCULAR HEMOGLOBIN 28.7 PG (27.0-34.0); MEAN CORPUSCULAR HGB CONC 34.2 % (32.0-36.0); MEAN PLATELET VOLUME 8.1 FL (7.0-11.0); PLATELET COUNT 189 TH/MM3 (150-450); RED BLOOD COUNT 4.63 MIL/MM3 (4.50-5.90); RED CELL DISTRIBUTION WIDTH 15.9 % (11.6-17.2); WHITE BLOOD COUNT 7.1 TH/MM3 (4.0-11.0)
--- NOTE | 2017-11-21 11:40 | HHI.GIFU ---
Subjective Remarks Pt OOB to chair. Concerned he has not had a BM after his colonoscopy yesterday. No bleeding. Tolerating diet. (Laverne Amaya) Objective Vitals I&O Vital Signs Date Time Temp Pulse Resp B/P (MAP) Pulse Ox O2 Delivery O2 Flow Rate FiO2 11/21/17 08:48 98.2 61 20 153/66 (95) 99 11/21/17 04:00 98.9 60 18 149/75 (99) 98 11/21/17 00:00 97.5 74 18 124/71 (88) 96 11/20/17 20:00 97.6 61 18 117/64 (81) 98 11/20/17 16:00 98.1 60 17 133/69 (90) 98 11/20/17 16:00 60 11/20/17 14:37 59 18 161/81 99 11/20/17 14:27 65 19 126/81 100 11/20/17 14:04 98.2 66 19 118/60 99 11/20/17 12:23 97.7 70 17 155/79 (104) 97 11/20/17 12:00 59 I/O 11/20/17 11/20/17 11/20/17 11/21/17 11/21/17 11/21/17 07:00 15:00 23:00 07:00 15:00 23:00 Intake Total 266 ml 1003 ml 210 ml Balance 266 ml 1003 ml 210 ml Intake FFP 266 ml 633 ml 210 ml Blood Product IV Normal Saline Flush 220 ml Other 150 ml # Voids 5 6 # Bowel Movements 4 Laboratory Laboratory Tests Test 11/20/17 22:20 11/21/17 08:04 Urine Occult Blood NEG White Blood Count 7.1 Red Blood Count 4.63 Hemoglobin 13.3 Hematocrit 38.8 Mean Corpuscular Volume 83.8 Mean Corpuscular Hemoglobin 28.7 Mean Corpuscular Hemoglobin Concent 34.2 Red Cell Distribution Width 15.9 Platelet Count 189 Mean Platelet Volume 8.1 Imaging Last Impressions Abdomen/Pelvis CT 11/19/17 0455 Signed Impressions: Service Date/Time: November 05:27 - CONCLUSION: 1. Left renal cyst. 2. Diverticulosis without diverticulitis. 3. Atherosclerosis. 4. Right adrenal adenoma. Shyam Garcia MD Physical Exam HEENT: PERRL; normocephalic; atraumatic; no jaundice. CHEST: CTA CARDIAC: RRR ABDOMEN: Soft, protuberant, nontender; no hepatosplenomegaly; bowel sounds are present in all four quadrants. EXTREMITIES: No clubbing, cyanosis, or edema. SKIN: Normal; no rash; no jaundice. MANAGER LABOR RELATIONS: No focal deficits; alert and oriented times three. (Laverne Amaya) Assessment and Plan Plan ASSESSMENT - BRBPR - LGIB could be hemorrhoids vs diverticular. onset 1 day ago. HH currently WNL. on coumadin with INR 3.4. 11/21/17 s/p colonoscopy found colon polyps, diverticulosis with prob diverticular bleeding. No bleeding currently. HH stable. bx pending. PLAN - restart coumadin 11/23/17 - ok to d/c from GI standpoint - f/u with GI in 2 weeks - high fiber diet pt seen by myself and DR Griggs and this note is written on her behalf (Laverne Amaya) Laverne Amaya Nov 21, 2017 11:40 Liseth Griggs MD Nov 21, 2017 18:49
[2017-11-21 12:07] VITALS: BP 111/61; PULSE 60; RESP 20; TEMP 98; O2SAT 98
--- NOTE | 2017-11-21 12:56 | HHI.DS ---
Discharge Summary Admission Date Nov 19, 2017 at 06:26 Discharge Date: Nov 21, 2017 Admitting Diagnosis LOWER GI BLEED, HEMODYNAMICALLY STABLE, ON COUMADIN (1) GI bleed ICD Code: K92.2 - Gastrointestinal hemorrhage, unspecified Procedures EGD/colonoscopy Brief History - From Admission 77-year-old male with history of CAD, CHF, who presents with onset of bright red blood per rectum starting last night, continuing with bouts of bright red per rectum this morning. Patient denies any abdominal pain. He says he has had a cold recently, has been taking a lot of Robitussin cough medicine, however feels like his cold is better now. Denies any difficulty breathing. Denies any chest pain or shortness of breath currently. CBC/BMP: 11/21/17 0804 11/20/17 0707 Significant Findings Laboratory Tests Test 11/19/17 04:50 11/19/17 08:20 11/19/17 10:13 11/19/17 16:40 Monocytes (%) (Auto) 11.1 % (0.0-8.0) Prothrombin Time 33.8 SEC (9.8-11.6) Activated Partial Thromboplast Time 42.2 SEC (24.3-30.1) Albumin 2.8 GM/DL (3.4-5.0) Calcium Level 8.4 MG/DL (8.5-10.1) Estimat Glomerular Filtration Rate 83 ML/MIN (>89) Test 11/20/17 07:07 11/20/17 22:20 11/21/17 08:04 Monocytes (%) (Auto) 12.1 % (0.0-8.0) Prothrombin Time 15.6 SEC (9.8-11.6) Random Glucose 72 MG/DL (74-106) Hematocrit 38.8 % (39.0-51.0) Imaging Last Impressions Abdomen/Pelvis CT 11/19/17 5075 Signed Impressions: Service Date/Time: November 05:27 - CONCLUSION: 1. Left renal cyst. 2. Diverticulosis without diverticulitis. 3. Atherosclerosis. 4. Right adrenal adenoma. Shyam Garcia MD PE at Discharge GENERAL: Pleasant, -[place] male, laying in bed. EYES: Extraocular motions intact. ENT: Edentulous, airway patent. NECK: Trachea midline. CARDIOVASCULAR: Regular rate and rhythm without murmurs RESPIRATORY: Clear to auscultation. Breath sounds equal bilaterally. No wheezes GASTROINTESTINAL: Abdomen soft, non-tender, nondistended. No guarding. MUSCULOSKELETAL: Moves all extremities with no difficulty. NEUROLOGICAL: Awake and alert. Normal speech. Pt update on day of discharge Pt feeling well. Denies any new episode of bleeding. Denies any CP/SOB/n/v Hospital Course Pt admitted for Bright blood per rectum. s/p 3 units of FFP and vit K due to pt' s INR supratherapeutic (3.4) on admission. CT scan showed diverticulosis. GI evaluated the pt, he is s/p EGD/colonoscopy showing diverticulosis, polyps, internal hemorrhoids. Continue PPI and hold anticoagulation until 11/23/17. //Incidental finding of right adrenal adenoma. Nonspecific. Follow-up primary care. Pt Condition on Discharge: Stable Discharge Disposition: Discharge Home Discharge Time: > 30 minutes Discharge Instructions DIET: Follow Instructions for: Heart Healthy Diet Additional Diet Instructions: high fiber diet Activities you can perform: Regular-No Restrictions Follow up Referrals: Gastroenterology - 2 Weeks PCP Follow-up - 1 Week Continued Medications: Allopurinol (Allopurinol) 300 Mg Tab 300 MG PO DAILY for Gout, #30 TAB [address] (Aspirin Adult Low Strength) 81 Mg Tabdr 81 MG PO DAILY, TAB Carvedilol (Coreg) 3.125 Mg Tab 3.125 MG PO BID, #60 TAB 0 Refills Diltiazem ER 24 HR (Diltiazem ER 24 HR) 240 Mg Caper 240 MG PO DAILY, #30 CAP 0 Refills Docusate Sodium (Stool Softener) 100 Mg Cap 100 MG PO DAILY PRN for CONSTIPATION Esomeprazole DR (Nexium) 40 Mg Capdr 40 MG PO DAILY, CAP 0 Refills Furosemide (Lasix) 40 Mg Tab 40 MG PO DAILY, #30 TAB 0 Refills Gabapentin (Gabapentin) 100 Mg Cap 100 MG PO HS, #30 CAP 0 Refills Lisinopril (Lisinopril) 20 Mg Tab 20 MG PO DAILY, #30 TAB 0 Refills Magnesium Oxide (Magnesium Oxide) 400 Mg Tab 400 MG PO BID for Nutritional Supplement, TAB 0 Refills Potassium Chloride ER (Potassium Chloride ER) 20 Meq Tab 20 MEQ PO BID for Electrolyte Replacement, #60 TAB 0 Refills Simethicone (Simethicone) 125 Mg Cap 125 MG PO QID PRN for GAS RETENTION, CAP 0 Refills Tizanidine (Tizanidine) 4 Mg Tab 4 MG PO Q8HR PRN for MUSCLE SPASM, TAB 0 Refills Tramadol (Tramadol) 50 Mg Tab 50 MG PO Q6H PRN for PAIN, TAB 0 Refills Warfarin (Warfarin) 5 Mg Tab 7.5 MG PO SUTUWETHSA for Blood Clot Prevention, #30 TAB 0 Refills Take 1&1/2 tabs (7.5mg) on Thursday,Thursday,Thursday, and Thursday Warfarin (Warfarin) 5 Mg Tab 5 MG PO MOFR for Blood Clot Prevention, #30 TAB 0 Refills Take 1 tablet (5mg) on Thursday and Thursday Sindi Nash MD Nov 21, 2017 12:56
[2017-11-21] MEDS ORDERED: ACETAMINOPHEN/HYDROcodone 325 MG/7.5 MG TAB PO ONE (14:15)
[2017-11-21] MEDS ORDERED: PROT40TA PO (15:02)
[2017-11-21] MEDS ORDERED: NORC5TAB PO (15:08)
== END 2017-11-21 15:32 | disposition home or self-care (01) ==
LOC: NEPC 03:38 → NEDA 06:26 → NEDH 11:06 → N05B 14:44
PROVIDERS: ADMIT Hospitalist; ATTEND Hospitalist
DX: K57.31 Diverticulosis of large intestine without perforation or abscess with bleeding (principal); D12.2 Benign neoplasm of ascending colon; D12.3 Benign neoplasm of transverse colon; D68.9 Coagulation defect, unspecified; D35.01 Benign neoplasm of right adrenal gland; R00.2 Palpitations; K64.8 Other hemorrhoids; I48.91 Unspecified atrial fibrillation; I25.10 Atherosclerotic heart disease of native coronary artery without angina pectoris; I11.0 Hypertensive heart disease with heart failure; I50.9 Heart failure, unspecified; I42.9 Cardiomyopathy, unspecified; J44.9 Chronic obstructive pulmonary disease, unspecified; I25.2 Old myocardial infarction; G47.30 Sleep apnea, unspecified; K21.9 Gastro-esophageal reflux disease without esophagitis; Q61.01 Congenital single renal cyst; N40.0 Benign prostatic hyperplasia without lower urinary tract symptoms; Z95.810 Presence of automatic (implantable) cardiac defibrillator; Z79.899 Other long term (current) drug therapy; Z79.82 Long term (current) use of aspirin; Z79.01 Long term (current) use of anticoagulants; Z80.0 Family history of malignant neoplasm of digestive organs
CPT/HCPCS: 00811; 36430; 45385; 74176; 80048; 80053; 81002; 85014; 85018; 85025; 85027; 85610; 85730; 86078; 86850; 86880; 86900; 86901; 86927; 88305; 94664; 96372; 96374; 96375; 96376; 97162; 99285; C9113; G0378; G8987; G8988; J2270; J2405; J3430; J7040; P9017

== ENCOUNTER 2017-11-26 12:47 | Observation (INO) | payer OTHER ==
[~2017-11-26] VITALS: Ht 172.7 cm; Wt 110.0 kg
[~2017-11-26 12:47] MED LIST changes: -NEXI40CA PO; +NORC5TAB PO; +PROT40TA PO
[2017-11-26 12:49] VITALS: BP 167/83; PULSE 67; RESP 20; TEMP 98.2; O2SAT 99
[2017-11-26 13:45] LABS: AUTOMATED NEUTROPHIL # 2.9 TH/MM3 (1.8-7.7); BASOPHIL % 0.7 % (0.0-2.0); EOSINOPHIL # 0.4 TH/MM3 (0-0.4); EOSINOPHIL % 6.6 % (0.0-4.0); HEMATOCRIT 37.9 % (39.0-51.0); HEMOGLOBIN 12.4 GM/DL (13.0-17.0); LYMPH % 27.2 % (9.0-44.0); LYMPHOCYTE # 1.5 TH/MM3 (1.0-4.8); MEAN CELL VOLUME 85.3 FL (80.0-100.0); MEAN CORPUSCULAR HGB CONC 32.9 % (32.0-36.0); MEAN PLATELET VOLUME 7.7 FL (7.0-11.0); MONO % 14.1 % (0.0-8.0); MONOCYTE # 0.8 TH/MM3 (0-0.9); NEUT % 51.4 % (16.0-70.0); PLATELET COUNT 219 TH/MM3 (150-450); RED BLOOD COUNT 4.44 MIL/MM3 (4.50-5.90); RED CELL DISTRIBUTION WIDTH 15.8 % (11.6-17.2); WHITE BLOOD COUNT 5.6 TH/MM3 (4.0-11.0)
[2017-11-26 13:57] LABS: INTERNATIONAL NORMALIZED RATIO 1.2 RATIO; PROTHROMBIN TIME - PATIENT 12.1 SEC (9.8-11.6)
[2017-11-26 14:04] LABS: BICARBONATE 25.2 MEQ/L (21.0-32.0); BLOOD UREA NITROGEN 18 MG/DL (7-18); CALCIUM 8.8 MG/DL (8.5-10.1); CHLORIDE 106 MEQ/L (98-107); CREATININE 1.28 MG/DL (0.60-1.30); GLOMERULAR FILTRATION RATE 66 ML/MIN (>89); GLUCOSE,RANDOM 81 MG/DL (74-106); SODIUM (NA) 137 MEQ/L (136-145)
--- NOTE | 2017-11-26 14:04 | RADRPT ---
EXAM DATE/TIME: 11/26/2017 13:21 [place] COMPARISON: CHEST PA & LAT, May 26, 2015, 17:25. INDICATIONS : Chest pain for 2 days MEDICAL HISTORY : Hypertension. Congestive heart failure. Myocardial infarction. Cononary artery disease. SURGICAL HISTORY : Pacemaker. Defibrillator. ENCOUNTER: Initial ACUITY: 2 days PAIN SCORE: 10/10 LOCATION: Bilateral chest FINDINGS: PA and lateral views of the chest demonstrate the lungs to be symmetrically aerated without evidence of mass, infiltrate or effusion. The cardiomediastinal contours are unremarkable. Osseous structure s are intact. Right-sided pacing device. CONCLUSION: No acute disease. Royce Yu Jr., MD on November 26, 2017 at 14:02 Board Certified Radiologist. This report was verified electronically.
[2017-11-26 14:07] LABS: TROPONIN I LESS THAN 0.02 NG/ML (0.02-0.05)
--- NOTE | 2017-11-26 15:12 | PD ---
HPI Chief Complaint: Chest Pain Time Seen by Provider: 13:47 Travel History International Travel<30 days: No Contact w/Intl Traveler<30days: No Traveled to known affect area: No History of Present Illness HPI 77-year-old male came to the emergency room with history of chest pain substernal for past couple days. Patient says it's getting worse and that's why he came in. He says the pain feels like burning. No radiation. No aggravating or relieving factors identified. Patient does see Dr. Horne for his device and had this checked about a week ago. Patient does not recall when his last stress test was done. He is not the best historian. Does not appear to be in any significant distress. Vital signs were stable. [facility] Past Medical History Narrative Medical List of his past medical, surgical, social and family history is reviewed from the nursing note. Hx Anticoagulant Therapy: Yes Arthritis: No Asthma: No Autoimmune Disease: No Blood Disorders: No Anxiety: No Depression: No Heart Rhythm Problems: Yes Cancer: No Cardiac Catheterization: Yes Cardiovascular Problems: Yes Chemotherapy: No Chest Pain: Yes Congestive Heart Failure: Yes COPD: Yes Cerebrovascular Accident: No Coronary Artery Disease: Yes Diabetes: No Diminished Hearing: No Endocrine: No Gastrointestinal Disorders: No GERD: Yes Glaucoma: No Genitourinary: No Headaches: No Hepatitis: No Hiatal Hernia: No Hypertension: Yes Immune Disorder: No Implanted Vascular Access Dvce: Yes Kidney Stones: No Musculoskeletal: Yes (r arm) Neurologic: Yes Psychiatric: No Reproductive: No Respiratory: Yes Integumentary: No Immunizations Current: Yes Migraines: No Myocardial Infarction: Yes Radiation Therapy: No Renal Failure: No Seizures: No Sickle Cell Disease: No Sleep Apnea: Yes Thyroid Disease: No Ulcer: No Past Surgical History Abdominal Surgery: No AICD: Yes (medtronic) Appendectomy: No Arteriovenous Shunt: No Body Medical Devices: PACER/DEFIBRILATOR Cardiac Surgery: Yes (pacemaker/defrib) Cholecystectomy: No Coronary Artery Bypass Graft: No Ear Surgery: No Endocrine Surgery: No Eye Surgery: No Genitourinary Surgery: No Gynecologic Surgery: No Insulin Pump: No Joint Replacement: No Oral Surgery: No Pacemaker: Yes Thoracic Surgery: No Other Surgery: Yes (back,fribrillator, broken arm right) Family History Family Myocardial Infarction: Yes Social History Alcohol Use: No Tobacco Use: No Substance Use: No Allergies-Medications (Allergen,Severity, Reaction): Coded Allergies: pepper (Unverified Allergy, Intermediate, Itching, 11/19/17) tomato (Unverified Allergy, Intermediate, Itching, 11/19/17) aspirin (Unverified Adverse Reaction, Severe, UPSET STOMACH, 11/19/17) *MDRO Multi-Drug Resistant Organism (Unverified Adverse Reaction, Unknown , 11/19/17) Hx MRSA chest wound 02/2010. Comments List of his allergies reviewed from the nursing note. Reported Meds & Prescriptions Reported Meds & Active Scripts Active [place] (Hydrocodone-Acetaminophen) 5 Mg-325 Mg Tab 1 Tab PO Q6H PRN Protonix (Pantoprazole Sodium) 40 Mg Tab 40 Mg PO DAILY Reported Tizanidine (Tizanidine HCl) 4 Mg Tab 4 Mg PO Q8HR PRN Stool Softener (Docusate Sodium) 100 Mg Cap 100 Mg PO DAILY PRN Warfarin 5 Mg Tab 5 Mg PO MOFR Take 1 tablet (5mg) on Thursday and Thursday Warfarin 5 Mg Tab 7.5 Mg PO SUTUWETHSA Take 1&1/2 tabs (7.5mg) on Thursday,Thursday,Thursday, and Thursday Aspirin Adult Low Strength (Aspirin) 81 Mg Tabdr 81 Mg PO DAILY Lisinopril 20 Mg Tab 20 Mg PO DAILY Diltiazem ER 24 HR 240 Mg Caper 240 Mg PO DAILY Tramadol (Tramadol HCl) 50 Mg Tab 50 Mg PO Q6H PRN Lasix (Furosemide) 40 Mg Tab 40 Mg PO DAILY Allopurinol 300 Mg Tab 300 Mg PO DAILY Simethicone 125 Mg Cap 125 Mg PO QID PRN Coreg (Carvedilol) 3.125 Mg Tab 3.125 Mg PO BID Magnesium Oxide 400 Mg Tab 400 Mg PO BID Potassium Chloride ER (Potassium Chloride) 20 Meq Tab 20 Meq PO BID Gabapentin 100 Mg Cap 100 Mg PO HS Narrative Medication List of his home medications reviewed from the nursing note. Review of Systems Except as stated in HPI: all other systems reviewed are Neg Cardiovascular: Positive: Chest Pain or Discomfort Physical Exam Narrative GENERAL: Awake, alert, no obvious distress SKIN: Focused skin assessment warm/dry. HEAD: Atraumatic. Normocephalic. EYES: Pupils equal and round. No scleral icterus. No injection or drainage. ENT: No nasal bleeding or discharge. Mucous membranes pink and moist. NECK: Trachea midline. No JVD. CARDIOVASCULAR: Regular rate and rhythm. No murmur appreciated. RESPIRATORY: No accessory muscle use. Clear to auscultation. Breath sounds equal bilaterally. GASTROINTESTINAL: Abdomen soft, non-tender, nondistended. Hepatic and splenic margins not palpable. MUSCULOSKELETAL: No obvious deformities. No clubbing. No cyanosis. No edema. NEUROLOGICAL: Awake and alert. No obvious cranial nerve deficits. Motor grossly within normal limits. Normal speech. PSYCHIATRIC: Appropriate mood and affect; insight and judgment normal. Data Data Last Documented VS Vital Signs Date Time Temp Pulse Resp B/P (MAP) Pulse Ox O2 Delivery O2 Flow Rate FiO2 11/26/17 13:59 60 11/26/17 13:57 (111) 11/26/17 13:57 99 Nasal Cannula 11/26/17 12:49 98.2 20 Orders Orders Electrocardiogram (11/26/17 13:01) Complete Blood Count With Diff (11/26/17 13:01) Basic Metabolic Panel (Bmp) (11/26/17 13:01) Ckmb (Isoenzyme) Profile (11/26/17 13:01) Troponin I (11/26/17 13:01) Iv Access Insert/Monitor (11/26/17 13:01) Ecg Monitoring (11/26/17 13:01) Oxygen Administration (11/26/17 13:01) Oximetry (11/26/17 13:01) Prothrombin Time / Inr (Pt) (11/26/17 13:01) Act Partial Throm Time (Ptt) (11/26/17 13:01) B-Type Natriuretic Peptide (11/26/17 13:01) Chest, Pa & Lat (11/26/17 ) CKMB (11/26/17 13:10) CKMB% (11/26/17 13:10) Admit Order (Ed Use Only) (11/26/17 15:20) Labs Laboratory Tests Test 11/26/17 13:10 White Blood Count 5.6 TH/MM3 Red Blood Count 4.44 MIL/MM3 Hemoglobin 12.4 GM/DL Hematocrit 37.9 % Mean Corpuscular Volume 85.3 FL Mean Corpuscular Hemoglobin 28.0 PG Mean Corpuscular Hemoglobin Concent 32.9 % Red Cell Distribution Width 15.8 % Platelet Count 219 TH/MM3 Mean Platelet Volume 7.7 FL Neutrophils (%) (Auto) 51.4 % Lymphocytes (%) (Auto) 27.2 % Monocytes (%) (Auto) 14.1 % Eosinophils (%) (Auto) 6.6 % Basophils (%) (Auto) 0.7 % Neutrophils # (Auto) 2.9 TH/MM3 Lymphocytes # (Auto) 1.5 TH/MM3 Monocytes # (Auto) 0.8 TH/MM3 Eosinophils # (Auto) 0.4 TH/MM3 Basophils # (Auto) 0.0 TH/MM3 CBC Comment DIFF FINAL Differential Comment Prothrombin Time 12.1 SEC Prothromb Time International Ratio 1.2 RATIO Activated Partial Thromboplast Time 32.4 SEC Blood Urea Nitrogen 18 MG/DL Creatinine 1.28 MG/DL Random Glucose 81 MG/DL Calcium Level 8.8 MG/DL Sodium Level 137 MEQ/L Potassium Level 4.3 MEQ/L Chloride Level 106 MEQ/L Carbon Dioxide Level 25.2 MEQ/L Anion Gap 6 MEQ/L Estimat Glomerular Filtration Rate 66 ML/MIN Total Creatine Kinase 124 U/L Creatine Kinase MB 1.0 NG/ML Troponin I LESS THAN 0.02 NG/ML B-Type Natriuretic Peptide 56 PG/ML MDM Medical Decision Making Medical Screen Exam Complete: Yes Emergency Medical Condition: Yes Medical Record Reviewed: Yes Interpretation(s) Twelve-lead EKG was reviewed by me. Normal sinus rhythm, left axis deviation, lateral T wave inversions, first-degree AV block. Heart rate of 64 bpm. Differential Diagnosis ACS, non-STEMI Narrative Course 3:30 PM blood test results of back and within acceptable limit. Patient will be admitted to the chest pain center to be ruled out. Procedures EKG Prior to Arrival: No Diagnosis Primary Impression: Chest pain Qualified Codes: R07.9 - Chest pain, unspecified Admitting Information Admitting Physician Requests: Observation Isauro José MD Nov 26, 2017 15:12
--- NOTE | 2017-11-26 16:31 | HHI.HP ---
[facility] Primary Care Physician Chon Hall MD Chief Complaint Chest pain History of Present Illness This is a 77-year-old male with history of nonischemic cardiomyopathy, paroxysmal atrial fibrillation with defibrillator/pacemaker, chronic pain, hypertension, recent GI bleed that presents to ED complaining of chest discomfort. Patient states he has had intermittent discomforts for 2 weeks. Describes as sharp. Points to center of his chest. Cannot describe how long the symptoms last. States it occurs at least 4-5 times a day with some shortness of breath and nausea. No diaphoresis. States his symptoms are usually occurring at night. 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 I spoke with her and she states everything was functioning fine, there was a short episode of A. fib with RVR. She also states that he has had an echo in the office showing an EF of 40-45% within the last year or so. She states that she has him scheduled for Thursday to have a Lexiscan. Patient currently denying chest discomfort. Review of Systems General: Patient denies fevers, chills recent, and recent travel HEENT: Patient denies headache, sore throat, difficulty swallowing. Cardiovascular: Has the chest discomfort as mentioned above. Denies sensation of heart beating rapidly or irregularly. No syncope. Denies diaphoresis. Respiratory: He has shortness of breath. Denies inspirational chest discomfort. Denies coughing wheezing or hemoptysis. GI: Occasional nausea. Patient denies vomiting, diarrhea, abdominal pain, bloody stools. Musculoskeletal: Patient denies joint pain or edema. Denies calf pain or edema. Neurovascular: Patient denies numbness, tingling, weakness in extremities. Denies headache. Endocrine: Denies polyuria and polydipsia. Hematologic: Denies easy bruising. Skin: Denies rash or itching. Past Family Social History Allergies: Coded Allergies: pepper (Unverified Allergy, Intermediate, Itching, 11/19/17) tomato (Unverified Allergy, Intermediate, Itching, 11/19/17) aspirin (Unverified Adverse Reaction, Severe, UPSET STOMACH, 11/19/17) *MDRO Multi-Drug Resistant Organism (Unverified Adverse Reaction, Unknown , 11/19/17) Hx MRSA chest wound 02/2010. Past Medical History Nonischemic cardiomyopathy with a pacemaker/defibrillator. Paroxysmal atrial fibrillation, hypertension, chronic pain, GERD. Past Surgical History He has a defibrillator/pacemaker. Heart catheterizations without interventions. Back surgery. Reported Medications Reported Meds & Active Scripts Active [place] (Hydrocodone-Acetaminophen) 5 Mg-325 Mg Tab 1 Tab PO Q6H PRN Protonix (Pantoprazole Sodium) 40 Mg Tab 40 Mg PO DAILY Reported Tizanidine (Tizanidine HCl) 4 Mg Tab 4 Mg PO Q8HR PRN Stool Softener (Docusate Sodium) 100 Mg Cap 100 Mg PO DAILY PRN Warfarin 5 Mg Tab 5 Mg PO MOFR Take 1 tablet (5mg) on Thursday and Thursday Warfarin 5 Mg Tab 7.5 Mg PO SUTUWETHSA Take 1&1/2 tabs (7.5mg) on Thursday,Thursday,Thursday, and Thursday Aspirin Adult Low Strength (Aspirin) 81 Mg Tabdr 81 Mg PO DAILY Lisinopril 20 Mg Tab 20 Mg PO DAILY Diltiazem ER 24 HR 240 Mg Caper 240 Mg PO DAILY Tramadol (Tramadol HCl) 50 Mg Tab 50 Mg PO Q6H PRN Lasix (Furosemide) 40 Mg Tab 40 Mg PO DAILY Allopurinol 300 Mg Tab 300 Mg PO DAILY Simethicone 125 Mg Cap 125 Mg PO QID PRN Coreg (Carvedilol) 3.125 Mg Tab 3.125 Mg PO BID Magnesium Oxide 400 Mg Tab 400 Mg PO BID Potassium Chloride ER (Potassium Chloride) 20 Meq Tab 20 Meq PO BID Gabapentin 100 Mg Cap 100 Mg PO HS Family History Vital Signs Date Time Temp Pulse Resp B/P (MAP) Pulse Ox O2 Delivery O2 Flow Rate FiO2 11/26/17 13:59 60 11/26/17 13:57 (111) 11/26/17 13:57 99 Nasal Cannula 11/26/17 12:49 98.2 67 20 167/83 (111) 99 There is family history of CAD. Social History Denies tobacco abuse. Denies alcohol or illicit drug use. Physical Exam Vital Signs Vital Signs Date Time Temp Pulse Resp B/P (MAP) Pulse Ox O2 Delivery O2 Flow Rate FiO2 11/26/17 13:59 60 11/26/17 13:57 (111) 11/26/17 13:57 99 Nasal Cannula 11/26/17 12:49 98.2 67 20 167/83 (467) 94 Physical Exam GENERAL: This is a well-nourished, well-developed patient, in no apparent distress. Patient speaks in clear complete sentences. Patient is pleasant. HEENT: Head is atraumatic and normocephalic. Neck is supple without lymphadenopathy and trachea is midline. No JVD or carotid bruits. CARDIOVASCULAR: Grade 2 systolic murmur left sternal border. Regular rate and rhythm without gallops, or rubs. RESPIRATORY: Clear to auscultation. Breath sounds equal bilaterally. No wheezes , rales, or rhonchi. Chest wall is nontender. No use of accessory muscles. GASTROINTESTINAL: Abdomen is nontender, nondistended. Abdomen soft. No obvious pulsatile mass or bruit. No CVA tenderness. Strong femoral pulses bilaterally. Normal bowel sounds in all quadrants. MUSCULOSKELETAL: Patient is moving upper and lower extremities freely. No calf tenderness or edema, no Homans sign. Strong pulses in upper and lower extremities. NEUROLOGICAL: Patient is alert and oriented. Cranial nerves 2-12 are grossly intact. No focal deficits and speech is clear. SKIN: No rash and turgor is normal. Laboratory Laboratory Tests Test 11/26/17 13:10 White Blood Count 5.6 Red Blood Count 4.44 Hemoglobin 12.4 Hematocrit 37.9 Mean Corpuscular Volume 85.3 Mean Corpuscular Hemoglobin 28.0 Mean Corpuscular Hemoglobin Concent 32.9 Red Cell Distribution Width 15.8 Platelet Count 219 Mean Platelet Volume 7.7 Neutrophils (%) (Auto) 51.4 Lymphocytes (%) (Auto) 27.2 Monocytes (%) (Auto) 14.1 Eosinophils (%) (Auto) 6.6 Basophils (%) (Auto) 0.7 Neutrophils # (Auto) 2.9 Lymphocytes # (Auto) 1.5 Monocytes # (Auto) 0.8 Eosinophils # (Auto) 0.4 Basophils # (Auto) 0.0 CBC Comment DIFF FINAL Differential Comment Prothrombin Time 12.1 Prothromb Time International Ratio 1.2 Activated Partial Thromboplast Time 32.4 Blood Urea Nitrogen 18 Creatinine 1.28 Random Glucose 81 Calcium Level 8.8 Sodium Level 137 Potassium Level 4.3 Chloride Level 106 Carbon Dioxide Level 25.2 Anion Gap 6 Estimat Glomerular Filtration Rate 66 Total Creatine Kinase 124 Creatine Kinase MB 1.0 Troponin I LESS THAN 0.02 B-Type Natriuretic Peptide 56 Result Diagram: 11/26/17 1310 11/26/17 1310 Imaging Last 48 hours Impressions Chest X-Ray 11/26/17 0000 Signed Impressions: Service Date/Time: November 13:21 - CONCLUSION: No acute disease. Royce Yu Jr., MD Course Initial EKG sinus rhythm rate [address]-T changes are nonspecific. Caprini VTE Risk Assessment Caprini VTE Risk Assessment: Mod/High Risk (score >= 2) Caprini Risk Assessment Model Point Value = 1 Point Value = 2 Point Value = 3 Point Value = 5 Age 41-60 Minor surgery BMI > 25 kg/m2 Swollen legs Varicose veins or History of unexplained or recurrent spontaneous Oral contraceptives or hormone replacement Sepsis (< 1 month) Serious lung disease, including pneumonia (< 1 month) Abnormal pulmonary function Acute myocardial infarction Congestive heart failure (< 1 month) History of inflammatory bowel disease Medical patient at bed rest Age 61-74 Arthroscopic surgery Major open surgery (> 45 min) Laparoscopic surgery (> 45 min) Malignancy Confined to bed (> 72 hours) Immobilizing plaster cast Central venous access Age >= 75 History of VTE Family history of VTE Factor V Leiden Prothrombin [id number] Lupus anticoagulant Anticardiolipin antibodies Elevated serum homocysteine Heparin-induced thrombocytopenia Other congenital or acquired thrombophilia Stroke (< 1 month) Elective arthroplasty Hip, pelvis, or leg fracture Acute spinal cord injury (< 1 month) Prophylaxis Regimen Total Risk Factor Score Risk Level Prophylaxis Regimen 0-1 Low Early ambulation 2 Moderate Order ONE of the following: *Sequential Compression Device (SCD) *Heparin 5000 units SQ BID 3-4 Higher Order ONE of the following medications: *Heparin 5000 units SQ TID *Enoxaparin/Lovenox 40 mg SQ daily (WT < 150 kg, CrCl > 30 mL/min) *Enoxaparin/Lovenox 30 mg SQ daily (WT < 150 kg, CrCl > 10-29 mL/min) *Enoxaparin/Lovenox 30 mg SQ BID (WT < 150 kg, CrCl > 30 mL/min) AND/OR *Sequential Compression Device (SCD) 5 or more Highest Order ONE of the following medications: *Heparin 5000 units SQ TID (Preferred with Epidurals) *Enoxaparin/Lovenox 40 mg SQ daily (WT < 150 kg, CrCl > 30 mL/min) *Enoxaparin/Lovenox 30 mg SQ daily (WT < 150 kg, CrCl > 10-29 mL/min) *Enoxaparin/Lovenox 30 mg SQ BID (WT < 150 kg, CrCl > 30 mL/min) AND *Sequential Compression Device (SCD) Assessment and Plan Assessment and Plan * Atypical chest pain: Patient will continue to have serial cardiac enzymes and EKGs for ruling out purposes. He will be seen by Dr. Toure of cardiology in the chest pain center. We reviewed his records, patient has history of having a ischemic stress test in 2009 followed by a cardiac catheterization revealing normal coronary arteries. Patient was seen also by Dr. Wilhelm. His symptoms appear to be GI related and he is still in the process of having GI evaluation, was scheduled yesterday but was canceled secondary to illness. We will repeat his enzymes and if having normal troponins he will be discharged with instructions to follow-up with PCP, GI, and cardiology. Resume all home meds. Bruce Campbell Nov 26, 2017 16:31
--- NOTE | 2017-11-26 16:35 | HHI.DCPOC ---
Discharge Care Plan Diagnosis: (1) Chest pain, atypical Goals to Promote Your Health * To prevent worsening of your condition and complications * To maintain your health at the optimal level Directions to Meet Your Goals Take your medications as prescribed Follow your dietary instruction Follow activity as directed Keep your appointments as scheduled Take your immunizations and boosters as scheduled If your symptoms worsen call your PCP, if no PCP go to Urgent Care Center or Emergency Room Smoking is Dangerous to Your Health. Avoid second hand smoke Call the 24-hour hour crisis hotline for domestic abuse at Bruce Campbell Nov 26, 2017 16:35
--- NOTE | 2017-11-26 16:42 | PD.CARD.PN ---
Subjective Subjective Remarks Patient seen and examined, discussed with PA. He is followed by PCP and was scheduled to see mechanical systems control engineer yesterday but doctor was sick and appointment was cancelled. He is followed by Dr. Horne for non ischemic cardiomyopathy and arrhythmia. FU already sched for next week. He had had a positive nuclear stress test in the past followed by a negative CATH. His current symptoms are very GI, with burning pain in his epigastric area radiating up into his chest. At times he feels like he is going to throw up with this. Had a bleeding diverticula in past and distant history of ulcers. Very poor life style. Objective Vital Signs / I&O Vital Signs Date Time Temp Pulse Resp B/P (MAP) Pulse Ox O2 Delivery O2 Flow Rate FiO2 11/26/17 13:59 60 11/26/17 13:57 (111) 11/26/17 13:57 99 Nasal Cannula 11/26/17 12:49 98.2 67 20 167/83 (111) 99 Physical Exam Obese poor historian and memory Severe dental problems Chest scarring both right and left upper due to device implants Device R side RSR with no M Abd distended but no tenderness guarding or rebound Laboratory Laboratory Tests Test 11/26/17 13:10 White Blood Count 5.6 TH/MM3 Red Blood Count 4.44 MIL/MM3 Hemoglobin 12.4 GM/DL Hematocrit 37.9 % Mean Corpuscular Volume 85.3 FL Mean Corpuscular Hemoglobin 28.0 PG Mean Corpuscular Hemoglobin Concent 32.9 % Red Cell Distribution Width 15.8 % Platelet Count 219 TH/MM3 Mean Platelet Volume 7.7 FL Neutrophils (%) (Auto) 51.4 % Lymphocytes (%) (Auto) 27.2 % Monocytes (%) (Auto) 14.1 % Eosinophils (%) (Auto) 6.6 % Basophils (%) (Auto) 0.7 % Neutrophils # (Auto) 2.9 TH/MM3 Lymphocytes # (Auto) 1.5 TH/MM3 Monocytes # (Auto) 0.8 TH/MM3 Eosinophils # (Auto) 0.4 TH/MM3 Basophils # (Auto) 0.0 TH/MM3 CBC Comment DIFF FINAL Differential Comment Prothrombin Time 12.1 SEC Prothromb Time International Ratio 1.2 RATIO Activated Partial Thromboplast Time 32.4 SEC Blood Urea Nitrogen 18 MG/DL Creatinine 1.28 MG/DL Random Glucose 81 MG/DL Calcium Level 8.8 MG/DL Sodium Level 137 MEQ/L Potassium Level 4.3 MEQ/L Chloride Level 106 MEQ/L Carbon Dioxide Level 25.2 MEQ/L Anion Gap 6 MEQ/L Estimat Glomerular Filtration Rate 66 ML/MIN Total Creatine Kinase 124 U/L Creatine Kinase MB 1.0 NG/ML Troponin I LESS THAN 0.02 NG/ML B-Type Natriuretic Peptide 56 PG/ML Imaging Last 24 hours Impressions Chest X-Ray 11/26/17 0000 Signed Impressions: Service Date/Time: November 13:21 - CONCLUSION: No acute disease. Royce Yu Jr., MD Assessment and Plan Problem List: (1) Non-ischemic cardiomyopathy ICD Codes: I42.9 - Cardiomyopathy, unspecified Status: Acute (2) Hypertension ICD Codes: I10 - Essential (primary) hypertension Status: Acute (3) GERD (gastroesophageal reflux disease) ICD Codes: K21.9 - Gastro-esophageal reflux disease without esophagitis Status: Acute (4) Chest pain, atypical ICD Codes: R07.89 - Other chest pain Status: Acute Siddharth Toure MD Nov 26, 2017 16:42
[2017-11-26] MEDS ORDERED: ONDANSETRON HCL 4 MG/2 ML VIAL IV PUSH PRN (16:45)
[2017-11-26] MEDS ORDERED: ACETAMINOPHEN 500 MG CPLT PO PRN (16:45)
[2017-11-26] MEDS ORDERED: ACETAMINOPHEN/HYDROcodone 325 MG/7.5 MG TAB PO PRN (16:45)
[2017-11-26 17:00] VITALS: BP 163/81; PULSE 71; RESP 18; O2SAT 99
[2017-11-26 19:25] VITALS: BP 139/80; PULSE 60; RESP 16; O2SAT 99
[2017-11-26 19:58] LABS: TROPONIN I LESS THAN 0.02 NG/ML (0.02-0.05)
[2017-11-26] MEDS ORDERED: LIDOCAINE VISCOUS 2% SOLN 15 ML UDC PO ONE (20:00)
[2017-11-26 20:46] LABS: TROPONIN I LESS THAN 0.02 NG/ML (0.02-0.05)
[2017-11-26 20:57] VITALS: O2SAT 98
--- NOTE | 2017-11-27 07:58 | EKG ---
Date Performed: 11/26/2017 Time Performed: 17:13:05 PTAGE: 77 years EKG: ELECTRONIC ATRIAL PACEMAKER MARKED LEFT AXIS DEVIATION LEFT VENTRICULAR HYPERTROPHY AND ST- T CHANGE ABNORMAL ECG NO CHANGE PREVIOUS TRACING : 11/26/2017 13.07 DOCTOR: Siddharth Toure Interpretating Date/Time 11/27/2017 07:57:47
--- NOTE | 2017-11-27 08:06 | EKG ---
Date Performed: 11/26/2017 Time Performed: 19:28:54 PTAGE: 77 years EKG: ELECTRONIC ATRIAL PACEMAKER MARKED LEFT AXIS DEVIATION MODERATE INTRAVENTRICULAR CONDUCTION DELAY MODERATE T-WAVE ABNORMALITY, CONSIDER ANTEROLATERAL ISCHEMIA ABNORMAL ECG NO SIG CHANGE PREVIOUS TRACING : 11/26/2017 17.13 DOCTOR: Siddharth Toure Interpretating Date/Time 11/27/2017 08:06:20
--- NOTE | 2017-11-27 14:15 | EKG ---
Date Performed: 11/26/2017 Time Performed: 13:07:30 PTAGE: 77 years EKG: Sinus rhythm WITH FIRST DEGREE AV BLOCK MARKED LEFT AXIS DEVIATION MODERATE INTRAVENTRICULAR CONDUCTION DELAY MOD ERATE T-WAVE ABNORMALITY, CONSIDER ANTEROLATERAL ISCHEMIA ABNORMAL ECG INTERPRETATION BASED ON A DEFA ULT AGE OF 40 YEARS PREVIOUS TRACING : 10/15/2016 19.50 Questionable old anteroseptal infarct. Since the prio r tracing, the atrial rate is no longer paced, but there is otherwise no significant serial change. DOCTOR: Kathleen Sanders Interpretating Date/Time 11/27/2017 14:14:48
== END 2017-11-26 21:20 | disposition home or self-care (01) ==
LOC: NEPE 12:47 → NEDA 15:24
PROVIDERS: ADMIT Internal Medicine Cardiovascular Disease; ATTEND Internal Medicine Cardiovascular Disease
DX: R07.89 Other chest pain (principal); I48.0 Paroxysmal atrial fibrillation; I42.9 Cardiomyopathy, unspecified; R06.02 Shortness of breath; R11.0 Nausea; G89.29 Other chronic pain; I44.0 Atrioventricular block, first degree; R94.31 Abnormal electrocardiogram [ECG] [EKG]; I25.10 Atherosclerotic heart disease of native coronary artery without angina pectoris; I25.2 Old myocardial infarction; I11.0 Hypertensive heart disease with heart failure; I50.9 Heart failure, unspecified; J44.9 Chronic obstructive pulmonary disease, unspecified; G47.30 Sleep apnea, unspecified; Z79.82 Long term (current) use of aspirin; Z79.01 Long term (current) use of anticoagulants; Z79.899 Other long term (current) drug therapy; K21.9 Gastro-esophageal reflux disease without esophagitis; Z95.810 Presence of automatic (implantable) cardiac defibrillator
CPT/HCPCS: 71046; 80048; 82550; 82552; 83880; 84484; 85025; 85610; 85730; 93005; 99285; G0378